=== PATIENT | female | born 1975 | race Caucasian/White ===

== ENCOUNTER 2018-02-04 09:23 | Day surgery (SDC) | payer BC ==
[2018-02-04] MEDS ORDERED: Ondansetron INJ* 2 MG/ML VIAL IV ONE ×2 (10:10→12:15)
[2018-02-04] MEDS ORDERED: Morphine INJ* 4 MG/ML 1 ML CARPUJECT IV ONE ×3 (10:12→14:28)
[2018-02-04] MEDS ORDERED: NS 0.9% 1000 ML* 1,000 ML IV ONE ×2 (10:12→14:16)
[2018-02-04] MEDS ORDERED: Morphine INJ* 2 MG/ML 1 ML CARPUJECT ONE ×2 (10:29→14:32)
[2018-02-04 10:38] LABS: ABS Basophils 0 10^3/ul (0-0.2); ABS Eosinophils 0.2 10^3/ul (0-0.6); ABS Lymphocytes 1.4 10^3/ul (1.0-4.8); ABS Monocytes 0.6 10^3/ul (0-0.8); ABS Neutrophils 7.2 10^3/ul (1.5-7.7); ABS Nucleated RBC 0 10^3/ul; Eosinophil % 1.8 % (0-6); Hematocrit 42 % (35-47); Hemoglobin 14.2 g/dl (12.0-16.0); Lymphocyte % 14.9 % (25-47); Mean Corpuscular HGB Conc 34 g/dl (31-36); Mean Corpuscular Hemoglobin 33 pg (27-31); Mean Corpuscular Volume 96 fL (80-97); Mean Platelet Volume 8 um3 (7.4-10.4); Nucleated Red Blood Cells % 0; Platelet Count 197 10^3/ul (150-450); Red Blood Count 4.36 10^6/ul (4.0-5.4); Red Cell Distribution Width 13 % (10.5-15); White Blood Count 9.3 10^3/ul (3.5-10.8)
[2018-02-04 11:04] LABS: EGFR Non-African American 108.6 (>60)
[2018-02-04] MEDS ORDERED: Iohexol 300* (CONTRAST) 10 ML SDV IV ONE (12:00)
--- NOTE | 2018-02-04 12:15 | ED ---
Abdominal Pain/Female - HPI Summary HPI Summary: Patient presents to the ED with chief complaint of right lower quadrant pain 2 days. She states the pain is worsening, worse after eating and associated with nausea. Symptoms are aggravated by standing straight or lying flat. Alleviated only somewhat with slight flexion at the hips. Multiple abdominal surgeries in the past, but still has her appendix and gallbladder. Denies any fevers, sweats, chills. Pain is rated a 9 out of 10, intermittent, throbbing. Associated nausea, but denies any vomiting. History of full hysterectomy, 2 hernia repairs, gastric bypass. Denies pain similar to this in the past. Denies any diarrhea, constipation, hematemesis, melena. Denies any epigastric pain or pain in all 3 quadrants. She called her physician's office and spoke with a nurse who sent her to the ED for rule out appendicitis. She states she has pain in the right lower quadrant when she presses to the left lower quadrant. - History of Current Complaint Chief Complaint: EDAbdPain Stated Complaint: ABD PAIN Time Seen by Provider: 02/04/18 09:53 Hx Obtained From: Patient ?: No Onset/Duration: Sudden Onset Timing: Constant Severity Initially: Moderate Severity Currently: Moderate Pain Intensity: 7 Pain Scale Used: 0-10 Numeric Location: Discrete At: RLQ Radiates: No Character: Sharp, Cramping Aggravating Factor(s): Food, Deep Breaths Alleviating Factor(s): Position Associated Signs and Symptoms: Positive: Decreased Appetite, Nausea. Negative: Diaphoresis, Fever, Cough, Chest Pain, Constipation, Blood in Stool, Urinary Symptoms, Vaginal Bleeding, Vaginal Discharge, Vomiting, Diarrhea - Risk Factors Ectopic Risk Factor: Maternal Age ^ 30 Ovarian Torsion Risk Factor: Reproductive Age, Hysterectomy Allergies/Adverse Reactions: Allergies Allergy/AdvReac Type Severity Reaction Status Date / Time MS Avocado [Avocado] AdvReac Severe Abdominal Verified 02/04/18 14:20 Pain MS Erythromycin AdvReac Severe stomach Verified 02/04/18 14:20 [Erythromycin] pain, spasms in esophogus environmental Allergy Unknown Unknown Uncoded 02/04/18 14:20 Reaction Details PMH/Surg Hx/FS Hx/Imm Hx Previously Healthy: Yes Endocrine/Hematology History: Denies: Hx Diabetes Cardiovascular History: Denies: Hx Congestive Heart Failure, Hx Hypertension Respiratory History: Reports: Hx Seasonal Allergies - enviromental, Hx Sleep Apnea - HX OF PROIR TO GASTRIC BYPASS GI History: Reports: Hx Gastroesophageal Reflux Disease - at times meds otc prn History: Denies: Hx Renal Disease Musculoskeletal History: Reports: Hx Back Problems, Hx Orthopedic Injury - ( right) arm, injury, unable to raise above head, Other Musculoskeletal History - chronic back & neck pain Sensory History: Denies: Hx Contacts or Glasses, Hx Hearing Aid Opthamlomology History: Denies: Hx Contacts or Glasses Psychiatric History: Reports: Hx Anxiety - RECENTLY STARTED MEDICATION FOR - Cancer History Hx Chemotherapy: No Hx Radiation Therapy: No - Surgical History Surgery Procedure, Year, and Place: 2002 [facility]. 2007 c section [facility]. 2013 gastric bypass. 03/13 ventral hernia repair [facility] [place]. HYSTERECTOMY Hx Anesthesia Reactions: Yes - SEVERE NAUSEA//- 10/2015-NO PROBLEM WITH ANESTHESIA WITH THAT SURGERY - Immunization History Hx Pertussis Vaccination: No Immunizations Up to Date: Unable to Obtain/Confirm Infectious Disease History: No Infectious Disease History: Denies: Traveled Outside the [place] in Last 30 Days - Family History Family History: No FHx of Malignant Hyperthermia. No FHx of Breast Cancer. No FHx of Anesthesia Reaction - Social History Occupation: Employed Full-time Lives: With Family Alcohol Use: Occasionally Alcohol Amount: 1-2 DRINKS/MONTH Hx Substance Use: No Substance Use Type: Reports: None Hx Tobacco Use: No Smoking Status (MU): Never Smoked Tobacco Have You Smoked in the Last Year: No Review of Systems - ROS Summary Review of Systems Summary: Constitutional: The patient denies fever, PEREZ, sweats or chills. HEENT: Head: The patient denies headaches or dizziness. Eyes: The patient denies diplopia, blurry vision, eye pain, eye discharge, photophobia. Throat: The patient denies sore throats or hoarseness. Cardiovascular: The patient denies chest pain, palpitations, syncope, night cramps, or orthostasis. Respiratory: The patient denies cough, sputum production, hemoptysis, dyspnea, wheezing. Gastrointestinal: The patient denies odynophagia, dysphagia, hematemesis, melenemesis. Endorses right lower quadrant pain. Endorses nausea. Denies vomiting. Denies constipation or diarrhea. Genitourinary: Patient denies dysuria, hematuria, or pyuria. Patient denies back pain. Denies vaginal discharge, vaginal bleeding. Denies other urinary symptoms. Muscles: The patient denies myalgia, strain or weakness. Joints: The patient denies arthralgia and/or arthritis. Neurologic: The patient denies headache, loss of consciousness, or seizure. Constitutional: Negative Negative: Fever, Chills, Fatigue, Skin Diaphoresis Eyes: Negative Cardiovascular: Negative Respiratory: Negative Positive: Abdominal Pain, Nausea. Negative: Vomiting, Diarrhea Genitourinary: Negative Positive: no symptoms reported, see HPI. Negative: dysuria, frequency, flank pain Musculoskeletal: Negative Skin: Negative All Other Systems Reviewed And Are Negative: Yes Physical Exam - Summary Physical Exam Summary: Appearance: WDW, comfortable, pleasant, alert Skin: Soft dry skin, no lesions. Nailbeds pink with no cyanosis or clubbing. No petechia noted. Eyes: KAMAR, EOMI, Conjunctiva pink with no redness or exudates. Mouth: Dentition without lesions. Moist mucosa Neck: Full range of motion. Palpable thyroid. Trachea at midline. No lymphadenopathy. Pulm: Chest symmetrical expansion. No deformities on posterior chest wall. Lungs clear to auscultation and percussion, without adventitious sounds. CV: No JVD. No deformities on anterior chest wall. Heart sounds. RRR. Normal S1 and single S2. No S3, S4, rubs, or murmurs. Carotids 2+ bilaterally without bruits. . exam not performed GI: Decreased bowel sounds in all 4 quadrants. Pain to light palpation to the right lower quadrant. No pain on deep palpation of all other 3 quadrants. Negative craig's. Positive obturator, psoas not performed. Pain over McBurney 's point. Rovsing sign positive. Musculoskeletal: Flexion and extension of neck without limitations. ROM WNL in all extremities. No deformities noted. Pulses +2 bilaterally. Neuro: Motor strength is 5/5 in upper and lower extremities bilaterally. A&OX3 Psych: Logical, coherent Triage Information Reviewed: Yes Vital Signs On Initial Exam: Initial Vitals Temp Pulse Resp BP Pulse Ox 98.3 F 71 18 127/78 98 02/04/18 09:24 02/04/18 09:24 02/04/18 09:24 02/04/18 09:24 02/04/18 09:24 Vital Signs Reviewed: Yes Appearance: Positive: Ill-Appearing Skin: Positive: Warm, Skin Color Reflects Adequate Perfusion, Diaphoretic Head/Face: Positive: Normal Head/Face Inspection Eyes: Positive: EOMI, KAMAR, Conjunctiva Clear Neck: Positive: Supple, Nontender, No Lymphadenopathy Respiratory/Lung Sounds: Positive: Clear to Auscultation, Breath Sounds Present Cardiovascular: Positive: Normal, RRR, Pulses are Symmetrical in both Upper and Lower Extremities Abdomen Description: Positive: Soft, Guarding, McBurney's Point Tenderness. Negative: CVA Tenderness (R), CVA Tenderness (L) Musculoskeletal: Positive: Normal, Strength/ROM Intact Neurological: Positive: Speech Normal Psychiatric: Positive: Normal, Affect/Mood Appropriate AVPU Assessment: Alert Diagnostics - Vital Signs Vital Signs Temp Pulse Resp BP Pulse Ox 02/04/18 10:38 68 114/63 97 02/04/18 10:34 20 02/04/18 10:00 120/71 02/04/18 09:50 69 98 02/04/18 09:48 122/70 02/04/18 09:24 98.3 F 71 18 127/78 98 - Laboratory Lab Results: Lab Results 02/04/18 02/04/18 02/04/18 Range/Units 10:20 10:20 10:20 WBC 9.3 (3.5-10.8) 10^3/ul RBC 4.36 (4.0-5.4) 10^6/ul Hgb 14.2 (12.0-16.0) g/dl Hct 42 (35-47) % MCV 96 (80-97) fL MCH 33 H (27-31) pg MCHC 34 (31-36) g/dl RDW 13 (10.5-15) % Plt Count 197 (150-450) 10^3/ul MPV 8 (7.4-10.4) um3 Neut % (Auto) 76.9 (38-83) % Lymph % (Auto) 14.9 L (25-47) % [place] % (Auto) 6.1 (0-7) % Eos % (Auto) 1.8 (0-6) % Baso % (Auto) 0.3 (0-2) % Absolute Neuts (auto) 7.2 (1.5-7.7) 10^3/ul Absolute Lymphs (auto) 1.4 (1.0-4.8) 10^3/ul Absolute Monos (auto) 0.6 (0-0.8) 10^3/ul Absolute Eos (auto) 0.2 (0-0.6) 10^3/ul Absolute Basos (auto) 0 (0-0.2) 10^3/ul Absolute Nucleated RBC 0 10^3/ul Nucleated RBC % 0 Sodium 138 (133-145) mmol/L Potassium 3.7 (3.5-5.0) mmol/L Chloride 105 (101-111) mmol/L Carbon Dioxide 26 (22-32) mmol/L Anion Gap 7 (2-11) mmol/L BUN 9 (6-24) mg/dL Creatinine 0.60 (0.51-0.95) mg/dL Est GFR ( Amer) 139.7 (>60) Est GFR (Non-Af Amer) 108.6 (>60) BUN/Creatinine Ratio 15.0 (8-20) Glucose 89 (70-100) mg/dL Lactic Acid 1.0 (0.5-2.0) mmol/L Calcium 9.3 (8.6-10.3) mg/dL Magnesium 2.0 (1.9-2.7) mg/dL Total Bilirubin 0.50 (0.2-1.0) mg/dL AST 20 (13-39) U/L ALT 27 (7-52) U/L Alkaline Phosphatase 60 (34-104) U/L C-Reactive Protein 54.13 H (< 5.00) mg/L Total Protein 6.7 (6.4-8.9) g/dL Albumin 4.0 (3.2-5.2) g/dL Globulin 2.7 (2-4) g/dL Albumin/Globulin Ratio 1.5 (1-3) Lipase 11 (11.0-82.0) U/L Result Diagrams: 02/04/18 10:20 02/04/18 10:20 Lab Statement: Any lab studies that have been ordered have been reviewed, and results considered in the medical decision making process. Re-Evaluation - Re-Evaluation First Eval Change: Worse - Worse since arrival, patient is given Zofran and morphine Second Eval Change: Improved - Improved immediately S/P morphine, however 2 hours later began to feel pain again Third Eval Change: Improved - She is improved after second dose of morphine Abdominal Pain Fem Course/Dx - Course Course Of Treatment: During the course of treatment, the patient is evaluated for right lower quadrant pain. History of hysterectomy, gastric bypass surgery and 2 hernia repairs. Labs obtained which are within normal limits except for a slightly elevated CRP of 54. Vital signs are stable and she remained afebrile. On arrival she is given Zofran 4 mg IV and morphine 4 mg IV with moderate amount of relief. CT abdomen/pelvis ordered to rule out appendicitis, however she has not had a total hysterectomy and still her ovaries remain. For this reason I am concerned with an ovarian torsion as ovarian torsion risks rise with a hysterectomy. Transvaginal ultrasound ordered. She is given more morphine and Zofran as she continues to have right lower quadrant pain. CT abdomen/pelvis shows acute appendicitis. Dr. Schmidt in surgery called who agrees to come see patient and take to surgery. Zosyn and IV fluids running. - Diagnoses Provider Diagnoses: Acute appendicitis Discharge - Discharge Plan Condition: Stable Disposition: ADMITTED TO [facility] Referrals: Nelda Cary MD [Primary Care Provider] -
--- NOTE | 2018-02-04 13:23 | RAD ---
HISTORY: Right lower quadrant pain, ovarian torsion, status post hysterectomy COMPARISONS: January 19, 2011 TECHNIQUE: Multiple transverse and longitudinal ultrasound images were obtained of the pelvis using grayscale, color Doppler, and spectral Doppler imaging using the endovaginal transducer. FINDINGS: UTERUS: The patient is status post hysterectomy. ENDOMETRIUM: The patient is status post hysterectomy. CUL-DE-SAC: There is small amount of simple fluid within the pelvis. RIGHT OVARY: The right ovary measures 3.9 x 2.5 x 1.5 cm. Normal arterial and venous waveforms are identifiable within the ovary on spectral Doppler imaging. Multiple follicles are noted. LEFT OVARY: The left ovary measures 3.3 x 3.1 x 1.9 cm. Normal arterial and venous waveforms are identifiable within the ovary on spectral Doppler imaging. Multiple follicles are noted. BLADDER: The bladder is not well visualized. OTHER: None IMPRESSION: 1. STATUS POST HYSTERECTOMY. 2. SMALL AMOUNT OF SIMPLE PELVIC ASCITES. 3. NO SONOGRAPHIC FEATURES OF TORSION. PLEASE NOTE THAT PARTIAL OR INTERMITTENT TORSION MAY BE SONOGRAPHICALLY NORMAL.
[2018-02-04 13:51] LABS: Urine Appearance Clear; Urine Blood Negative (Negative); Urine Color Straw; Urine Ketones Negative (Negative); Urine Protein Negative (Negative); Urine Specific Gravity 1.004 (1.010-1.030); Urine Urobilinogen Negative (Negative)
--- NOTE | 2018-02-04 14:05 | RAD ---
INDICATION: Right lower quadrant pain with nausea. COMPARISON: Comparison is made with a prior CT of the abdomen and pelvis from August 21, 2016. TECHNIQUE: A CT scan of the abdomen and pelvis was performed with intravenous and oral contrast following intravenous injection of 115 ml of Omnipaque 300 nonionic contrast. Contiguous axial sections were obtained from the lung bases through the symphysis pubis. Images were reconstructed in the coronal and sagittal planes. FINDINGS: There is mild dependent bilateral lower lobe subsegmental atelectasis. No pleural effusion is present. The liver is mildly enlarged and decreased in attenuation consistent with fatty infiltration. No significant focal abnormality is seen. The spleen is normal in size. The gallbladder appears distended. No gallbladder thickening or calcified gallstones are seen. The pancreas appears to be within normal limits. There is a small 0.8 cm left adrenal nodule which is unchanged from the prior study. The adrenal glands are otherwise unremarkable. The kidneys are normal in size. No focal abnormality or hydronephrosis is seen. The aorta is normal in caliber and demonstrates homogeneous contrast opacification. No significant enlarged retroperitoneal lymph nodes are seen. The patient appears to be status post Toño-en-Y gastric bypass surgery. The excluded stomach is nondistended. The small bowel and colon appear nondistended. The appendix appears distended with increased contrast enhancement. The appendix measures up to 1.2 cm in transverse dimension. There is stranding in the adjacent mesenteric fat. There is also a calcification in the base of the. These findings are all suggestive of acute appendicitis. There are few scattered diverticuli within the colon. There is no evidence for diverticulitis. There is a periumbilical hernia containing fat. No free intraperitoneal air is seen. There is free intraperitoneal fluid present in the dependent portion of the pelvis. No abscess is seen. No significant focal osseous abnormality is seen. IMPRESSION: FINDINGS MOST CONSISTENT WITH ACUTE APPENDICITIS.
[2018-02-04] MEDS ORDERED: Piperacillin/Tazobac ADVAN(*) 3.375 GM in NS 0.9% 100 ML* 100 ML IVPB ONE (14:16)
[2018-02-04] MEDS ORDERED: Bupivacaine 0.25% SDV* 30 ML ONE (14:46)
[2018-02-04] MEDS ORDERED: Scopolamine 1.5 mg* PATCH ONE (15:12)
--- NOTE | 2018-02-04 15:15 | HP ---
H&P (Free Text) History and Physical: Done in error. Please refer to dictated H&P.
[2018-02-04] MEDS ORDERED: fentaNYL* 50 MCG/ML 2 ML VIAL (100 MCG VIAL) ONE (15:16)
[2018-02-04] MEDS ORDERED: Rocuronium* 10 MG/ML VIAL ONE (15:16)
[2018-02-04] MEDS ORDERED: Midazolam* 1 MG/ML 5 ML VIAL (5 MG) ONE (15:16)
--- NOTE | 2018-02-04 15:20 | HP ---
H&P (Free Text) History and Physical: Patient known to me from prior surgery. She has presented to ED with 1 day h/o abd pain localized to RLQ, nausea, anorexia, and CT scan shows findings c/w acute appendicitis. I agree with the H&P, assessment and plan as per PURVI Gonzalez. Lap appy procedure/I/R/B/A/option of no tx d/w pt/. Risks explained incl, not ltd to: bleed, infxn, pain, scars, blood clots, PNA, N/V, open procedure, and risks of GETA. All ? answered and she agrees to proceed.
[2018-02-04] MEDS ORDERED: Ketorolac INJ* 30 MG/ML 1 ML VIAL ONE (15:22)
[2018-02-04] MEDS ORDERED: Succinylcholine* 20 MG/ML 10 ML VIAL ONE (15:22)
[2018-02-04] MEDS ORDERED: Lidocaine 2% PF * 5 ML VIAL ONE (15:22)
[2018-02-04] MEDS ORDERED: Dexamethasone IV* 4 MG/ML 1 ML (4 MG) ONE (15:22)
[2018-02-04] MEDS ORDERED: Propofol* 10 MG/ML 20 ML BTL IV PUSH ONE (15:22)
[2018-02-04] MEDS ORDERED: DiMENhydriNATE IV* 50 MG/ML VIAL ONE (15:22)
[2018-02-04] MEDS ORDERED: Ondansetron INJ* 2 MG/ML VIAL ONE (15:22)
--- NOTE | 2018-02-04 15:24 | HP ---
DATE OF ADMISSION: 02/04/2018. ATTENDING SURGEON: Dr. Ced Costa* (dictated by PURVI Curiel). REASON FOR ADMISSION: Right lower quadrant abdominal pain. HISTORY OF PRESENT ILLNESS: Ms. Patel is a pleasant, 42-year-old female who presented to the emergency room earlier today with complaints of 24 hours of abdominal pain. She notes that her pain started roughly around 5 o'clock yesterday evening with no precipitating factors. She described it as a dull, aching pain localized to the right lower quadrant with sharp episodes rated at up to 10/10 in intensity. She reports associated nausea, but denies any vomiting or changes in bowel habits. She has never had any similar pains in the past. She denies any associated fever, chills or night sweats. She noticed some decreased appetite overnight and this morning as well with worsening abdominal pain for which she presented to the emergency room for further evaluation. She had laboratory work-up that revealed a normal white count, normal hemoglobin and hematocrit. Her chemistry panel was also normal with the exception of elevated C-reactive protein. She was noted to have significant tenderness on exam to the right lower quadrant of her abdomen for which a CT scan and a transvaginal ultrasound were ordered; CT suggesting finds of acute appendicitis. Given her clinical picture and the findings of the CT scan, we were asked to see the patient for further evaluation of possible appendicitis. PAST MEDICAL HISTORY: Significant for morbid obesity, she is status post laparoscopic Toño-en-Y gastric bypass back in 2013. Also, she has a history of an anxiety disorder and gastroesophageal reflux disease. PAST SURGICAL HISTORY: Significant for laparoscopic Toño-en-Y gastric bypass back in 2013. She also had three laparoscopic ventral hernia repairs on separate occasions as well as recent hysterectomy back in September of 2016. CURRENT MEDICATIONS: Her medications at home include: 1. Biotin 1,000 mcg p.o. daily. 2. Calcium Citrate four wafers daily. 3. Vitamin D tablets 2,000 units p.o. daily. 4. Lexapro 5 mg p.o. daily. 5. Ativan 0.5 mg p.o. q.6 hours as needed for anxiety. 6. Multivitamin chewable two tablets daily. ALLERGIES: She is ALLERGIC TO ERYTHROMYCIN. FAMILY HISTORY: Noncontributory. SOCIAL HISTORY: The patient has never smoked. She is , lives with her family, and she drinks alcohol rarely. REVIEW OF SYSTEMS: See HPI, other negative. She denies any headache, dizziness , blurred vision, or double vision. No chest pain, palpitations, cough or shortness of breath. No back pain, flank pain, hematuria, dysuria, or urinary frequency. She admits to right lower quadrant abdominal pain with associated nausea, but denies any vomiting, recent changes in bowel habits, melena, or bleeding per rectum. No fever, chills, weight loss, or night sweats. PHYSICAL EXAMINATION GENERAL: She is a pleasant, healthy-appearing, middle-aged female in no acute distress or discomfort at the time of admission. VITAL SIGNS: Temperature 98.3, pulse 80, blood pressure 105/47, respirations 16 , O2 sat 99 percent on room air. HEENT: Head is normocephalic, atraumatic. Sclerae anicteric. PERRLA. EOM's intact. Oropharynx pink and moist with no exudate. NECK: Supple, trachea midline. No cervical adenopathy or thyromegaly. LUNGS: Clear to auscultation bilaterally. HEART: Regular rate and rhythm. Normal S1 and S2 without rubs, murmurs, or gallops. BACK: Normal curvature, no CVA tenderness. BREASTS: Exam deferred at this time. ABDOMEN: Soft and nondistended. There is moderate right lower quadrant tenderness with localized tenderness noted at McBurney's point. There is some guarding and rebound tenderness noted, but no rigidity or tympany. There are no hernias, masses, or hepatosplenomegaly. Bhatt sign was negative. EXTREMITIES: Without cyanosis, clubbing, or edema. RECTAL: Exam deferred at this time. NEUROLOGIC: Grossly intact. LABORATORY DATA: Laboratory work-up as mentioned above. CBC showed normal white count of 9,000; normal hemoglobin and hematocrit of 14 and 42 respectively. Her chemistry panel was all essentially within normal limits, including LFT's with elevated C-reactive protein of 54. Her urinalysis was also normal. ACCESSORY DIAGNOSTIC DATA: CT scan of the abdomen and pelvis was consistent with acute appendicitis. Transvaginal ultrasound showed no evidence of ovarian torsion. ASSESSMENT: [id number]-old female with signs and symptoms, as well as imaging studies consistent with acute appendicitis. PLAN: The patient will be admitted under the Surgical services for observation. I will discuss the case with Dr. Costa and we will likely take her to the operating room later this afternoon or early evening in anticipation for laparoscopic appendectomy. The rationale, indications, risks, and benefits of surgery were discussed with her today. Risks include, but not limited to infection, bleeding, or injury to adjacent structures. She seems to understand and wishes to proceed as outlined. PURVI CURIEL [id number]/[facility] #: [id number] MTDKeegan
[2018-02-04] MEDS ORDERED: Naloxone* 0.4 MG/ML 1 ML VIAL IV PRN (16:07)
[2018-02-04] MEDS ORDERED: Acetaminophen IV 1GM/100ML * 1,000 MG/100 ML VIAL IVPB ONE (16:07)
[2018-02-04] MEDS ORDERED: DiMENhydriNATE IV* 50 MG/ML VIAL IV PUSH PRN (16:07)
[2018-02-04] MEDS ORDERED: oxyCODONE TAB* 5 MG TAB PO PRN (16:07)
[2018-02-04] MEDS ORDERED: HYDROmorphone INJ* 1 MG/ML CARPUJECT SYRINGE ONE (16:14)
[2018-02-04] MEDS ORDERED: Acetaminophen IV 1GM/100ML * 100 ML ONE (16:40)
[2018-02-04] MEDS ORDERED: HYDROmorphone INJ* 2 MG/ML CARPUJECT SYRINGE ONE (16:40)
[2018-02-04] MEDS: HYDROmorphone INJ* 1 MG/ML CARPUJECT SYRINGE IV PRN ×2 (16:50→17:08)
[2018-02-04 19:24] VITALS: BP 110/68
--- NOTE | 2018-02-04 21:50 | OP ---
DATE OF OPERATION: 02/04/18 - [facility] DATE OF : 71 SURGEON: Ced Costa MD GRINDING ROOM INSPECTOR: None. ANESTHESIOLOGIST: Miranda Augustin MD ANESTHESIA: General endotracheal. PRE-OP DIAGNOSIS: Acute appendicitis. POST-OP DIAGNOSIS: Acute appendicitis. OPERATIVE PROCEDURE: Laparoscopic appendectomy. ESTIMATED BLOOD LOSS: Minimal. IV FLUIDS: Crystalloid. SPECIMENS: Appendix. DRAINS: None. COMPLICATIONS: None. COUNTS: Instrument, needle, and sponge counts correct. DESCRIPTION OF PROCEDURE: The patient was brought to the operating room and placed on the table supine. Sequential compression devices were placed on both lower extremities. General anesthesia was administered. The abdomen was prepped and draped in the usual sterile fashion. Time-out was performed. Local anesthetic was infiltrated into the skin and soft tissue prior to making each incision. Entry to the abdomen was through a infraumbilical curvilinear incision created through a previous scar. Open technique was used to access the peritoneal cavity. Carbon dioxide was insufflated to a pressure of 15 mmHg. Under direct visualization, two 5-mm trocars were placed one in the suprapubic, midline and one in the left lower quadrant. The appendix was identified in the right lower quadrant. It appeared to be inflamed along the distal one half. No gangrene. No suppuration noted. The appendix was elevated and wound appeared in the mesentery of the appendix and the mesentery then was divided with the EndoGIA stapler with a robert cartridge. The appendix was divided at the cecum with the EndoGIA stapler with a thakur cartridge. The appendix was placed through an endoscopic retrieval bag and retrieved through the umbilical site. Hemostasis was assured. The infraumbilical incision wound was closed with 0 Polysorb to approximate the fascia in one layer. The ports were removed under direct visualization and carbon dioxide was released. Skin incisions were closed with 4-0 Monocryl in a subcuticular fashion. Steri- Strips were applied. The patient tolerated this procedure well. She was extubated and transferred to Recovery in stable condition. [id number]/[facility] #: [id number] [facility]
== END 2018-02-04 19:25 | disposition home or self-care (01) ==
LOC: ED 09:23 → OR 15:13
PROVIDERS: ATTEND Surgery
DX: K35.80 Unspecified acute appendicitis (principal); R10.31 Right lower quadrant pain; R11.0 Nausea; K21.9 Gastro-esophageal reflux disease without esophagitis; Z98.84 Bariatric surgery status; F41.9 Anxiety disorder, unspecified
CPT/HCPCS: 36415; 74177; 76830; 80053; 81003; 83605; 83690; 83735; 85025; 86140; 87040; 88304; 99284; A9270-GY; C1776; J0330; J1100; J1170; J1240; J1885; J2250; J2270; J2405; J2543; J2704; J3010; Q9967

== ENCOUNTER 2018-06-30 17:25 | Emergency (ER) | payer BC ==
[2018-06-30 17:33] VITALS: BP 118/70
--- NOTE | 2018-06-30 17:44 | UC ---
Lower Extremity/Ankle HPI - HPI Summary HPI Summary: [facility] for attending Loco Deras MD. Pt is a 42 y/o F c/o bilateral LE swelling Assoc. Sx: Denies: Described as PMHx: - History of Current Complaint Chief Complaint: UCLowerExtremity Stated Complaint: FOOT COMPLAINT Time Seen by Provider: 06/30/18 17:38 Hx Obtained From: Patient Severity Currently: Severe Pain Intensity: 8 Pain Scale Used: 0-10 Numeric - Allergies/Home Medications Allergies/Adverse Reactions: Allergies Allergy/AdvReac Type Severity Reaction Status Date / Time avocado Allergy Unknown Verified 06/30/18 17:33 Reaction Details erythromycin base Allergy Unknown Verified 06/30/18 17:33 Reaction Details environmental Allergy Unknown Unknown Uncoded 02/16/18 10:45 Reaction Details Home Medications: Home Medications Biotin 06/30/18 [History] Calcium Carbonate [Calcium] 06/30/18 [History] PMH/Surg Hx/FS Hx/Imm Hx - Surgical History Surgical History: Yes Surgery Procedure, Year, and Place: 2002 [facility]. 2007 [facility] section [facility]. 2013 gastric bypass. 03/13 ventral hernia repair [facility]. HYSTERECTOMY. APPENDECTOMY ON 02/04/18 NEED TO WAIT [address] VELASCO - Family History Family History: No FHx of Malignant Hyperthermia. No FHx of Breast Cancer. No FHx of Anesthesia Reaction - Social History Alcohol Use: Occasionally Alcohol Amount: 1-2 DRINKS/MONTH Substance Use Type: None Smoking Status (MU): Never Smoked Tobacco Have You Smoked in the Last Year: No - Immunization History Most Recent Influenza Vaccination: 08/2014 Most Recent Tetanus Shot: UNKNOWN Most Recent Pneumonia Vaccination: NEVER Physical Exam Vital Signs: Initial Vital Signs Temp 98.6 F 06/30/18 17:26 Pulse 62 06/30/18 17:26 Resp 16 06/30/18 17:26 BP 118/70 06/30/18 17:26 Pulse Ox 100 06/30/18 17:26 Discharge - Discharge Plan Referrals: Nelda Cary MD [Primary Care Provider] -
--- NOTE | 2018-06-30 17:56 | ED ---
Lower Extremity - HPI Summary HPI Summary: 42 yr old female with the complaint of left ankle foot pain. Onset of symptoms a couple of weeks ago and at first in the medial arch of the foot, and then in the medial ankle. She has pain that has gotten worse, and with standing and walking all day has become worse today. She notes some minor swelling medial left ankle. She recalls no trauma, falls or injuries. SHe has not had fever, chills or been ill. No travel or long trips. She states she pain shoots up into the lower left medial leg area. She does not feel her left leg is any more swollen above the medial ankle. She has not had SOB, or pain in chest. - History of Current Complaint Chief Complaint: UCLowerExtremity Stated Complaint: FOOT COMPLAINT Time Seen by Provider: 06/30/18 17:38 Pain Intensity: 8 - Allergies/Home Medications Allergies/Adverse Reactions: Allergies Allergy/AdvReac Type Severity Reaction Status Date / Time avocado Allergy Unknown Verified 06/30/18 17:33 Reaction Details erythromycin base Allergy Unknown Verified 06/30/18 17:33 Reaction Details environmental Allergy Unknown Unknown Uncoded 02/16/18 10:45 Reaction Details Home Medications: Home Medications Biotin 06/30/18 [History] Calcium Carbonate [Calcium] 06/30/18 [History] PMH/Surg Hx/FS Hx/Imm Hx Endocrine/Hematology History: Denies: Hx Diabetes Cardiovascular History: Denies: Hx Congestive Heart Failure, Hx Hypertension, Hx Pacemaker/ICD Respiratory History: Reports: Hx Seasonal Allergies - enviromental, Hx Sleep Apnea - HX OF PROIR TO GASTRIC BYPASS GI History: Reports: Hx Gastroesophageal Reflux Disease - at times meds otc prn History: Denies: Hx Renal Disease Musculoskeletal History: Reports: Hx Back Problems, Hx Orthopedic Injury - ( right) arm, injury, unable to raise above head, Other Musculoskeletal History - chronic back & neck pain Sensory History: Denies: Hx Contacts or Glasses, Hx Hearing Aid Opthamlomology History: Denies: Hx Contacts or Glasses Psychiatric History: Reports: Hx Anxiety - RECENTLY STARTED MEDICATION FOR Denies: Hx Panic Disorder - Cancer History Hx Chemotherapy: No Hx Radiation Therapy: No - Surgical History Surgery Procedure, Year, and Place: [facility]. 2007 [facility]. 2013 gastric bypass. 03/13 ventral hernia repair [facility]. HYSTERECTOMY. APPENDECTOMY ON 02/04/18 NEED TO WAIT [address] KRISTA Arce Anesthesia Reactions: Yes - SEVERE NAUSEA//- 10/2015-NO PROBLEM WITH ANESTHESIA WITH THAT SURGERY Infectious Disease History: No Infectious Disease History: Denies: Traveled Outside the [place] in Last 30 Days - Family History Known Family History: Positive: Diabetes, Other - DM, No hisotry of blood clots Family History: No FHx of Malignant Hyperthermia. No FHx of Breast Cancer. No FHx of Anesthesia Reaction - Social History Occupation: Employed Full-time Lives: With Family Alcohol Use: Occasionally Alcohol Amount: 1-2 DRINKS/MONTH Hx Substance Use: No Substance Use Type: Reports: None Hx Tobacco Use: No Smoking Status (MU): Never Smoked Tobacco Have You Smoked in the Last Year: No Review of Systems Constitutional: Negative Positive: Other - left ankle foot pain All Other Systems Reviewed And Are Negative: Yes Physical Exam Triage Information Reviewed: Yes Vital Signs On Initial Exam: Initial Vitals Temp Pulse Resp BP Pulse Ox 98.6 F 62 16 118/70 100 06/30/18 17:26 06/30/18 17:26 06/30/18 17:26 06/30/18 17:26 06/30/18 17:26 Vital Signs Reviewed: Yes Appearance: Positive: Well-Appearing, No Pain Distress Skin: Positive: Warm, Skin Color Reflects Adequate Perfusion Head/Face: Positive: Normal Head/Face Inspection ENT: Positive: Pharynx normal Neck: Positive: Nontender Respiratory/Lung Sounds: Positive: Clear to Auscultation, Breath Sounds Present Cardiovascular: Positive: RRR, Pulses are Symmetrical in both Upper and Lower Extremities. Negative: Murmur Abdomen Description: Negative: Distended Musculoskeletal: Positive: Strength/ROM Intact, Other - there is mild tenderness over the medial plantar arch and over the anterior medial malleolus left ankle with mild STS. There are some slight spider veins present over the medial malleolus that are tender. No tenderness over the lateral malleolus. No tenderness over base of 5th metatarsal. She has no erythema or cellulitis to the foot or ankle area. The feet are symmetric in color, tactile temperture , and in size. No bruises noted. No rash. The calf and thigh areas are free of edema and free of tenderness. No erythema or cellulits to either leg, ankle or foot. She has some superficial spider type veins on thighs. There is no ankle joint effusion. Neurological: Positive: Sensory/Motor Intact, Alert, Oriented to Person Place, Time, CN Intact II-III, Normal Gait, Speech Normal Diagnostics - Vital Signs Vital Signs Temp Pulse Resp BP Pulse Ox 06/30/18 17:26 98.6 F 62 16 118/70 100 - Laboratory Lab Statement: Any lab studies that have been ordered have been reviewed, and results considered in the medical decision making process. - Radiology left foot and ankle Xray Interpretation: No Acute Changes Radiology Interpretation Completed By: Radiologist Lower Extremity Course/Dx - Course Course Of Treatment: 42 yr old with negative xrays. She has more prominent veins medial ankle than usual and she does report the pain traces up along her saphenous vein area up the leg. It would be useful to get Venous Doppler to evaluate this, and to be absolutely certain no DVT. She is being referred to the ER at [facility] [place] for futher evaluation now. She does not want an ambulance, and she feels totally capable of driving herself there now. - Diagnoses Provider Diagnoses: Ankle pain, left, Painful veins Discharge - Sign-Out/Discharge Documenting (check all that apply): Patient Departure - Discharge Plan Condition: Good Disposition: HOME-RECOMMEND TO ED Patient Education Materials: Arthralgia (ED), Superficial Thrombophlebitis (ED) Referrals: Nelda Cary MD [Primary Care Provider] - - Billing Disposition and Condition Condition: GOOD Disposition: Home-Recommend to ED
--- NOTE | 2018-06-30 18:03 | RAD ---
Indication: Left ankle pain. 3 views of left ankle demonstrates no fracture. Ankle mortise is intact. No other bone or joint abnormality is identified. IMPRESSION: Ankle mortise is intact. No fracture is identified.
--- NOTE | 2018-06-30 18:06 | RAD ---
Indication: Left foot pain. 3 views of left foot demonstrates no fracture. No other bone or joint abnormality is identified. IMPRESSION: No fracture of the left foot is noted.
== END 2018-06-30 18:25 | disposition home health service (06) ==
LOC: UCEAST 17:25
DX: M25.572 Pain in left ankle and joints of left foot (principal); I83.813 Varicose veins of bilateral lower extremities with pain; F41.9 Anxiety disorder, unspecified; Z88.1 Allergy status to other antibiotic agents; Z91.018 Allergy to other foods
CPT/HCPCS: 99212; G0463

== ENCOUNTER 2018-06-30 18:48 | Emergency (ER) | payer BC ==
--- NOTE | 2018-06-30 19:56 | ED ---
Lower Extremity - HPI Summary HPI Summary: [facility] presents from [facility] to rule out left lower extremity DVT. She reports she's had gradual progression of left foot and ankle swelling with pain that is now starting to shoot up into her calf when she bears weight. She denies any trauma acutely however admits to a history of multiple sprained ankles bilaterally and is on her feet many hours throughout the day at work. She also admits to some weight gain however she reports this took place a while ago. Other than a small fracture to the lateral aspect of her foot as a child with no residual issues, she denies any other surgeries or trauma to her lower extremities. She does admit her pain is sometimes worse in the morning. She admits to history of plantar fasciitis however doesn't think this feels quite the same. Denies numbness, tingling, weakness. She does have some bruising and spider veins starting along the instep of her left foot and ankle area. Otherwise no erythema, streaking, etc. She had an x-ray done a [facility] which is without acute fracture dislocation. She denies chest pain, shortness of breath, back pain, bloody cough, increased heart rate, fever. She also denies recent travel, trauma, history of smoking, history of cancer, history of clotting disorders. She has undergone bariatric surgery and is not allowed to take NSAID's so she has not been taking any medication for her current symptoms. NOTE: He's continuous follow-up with her bariatric team and reports her nutrition levels have been within range. She denies a history of osteoporosis or osteopenia however this does run in her family. - History of Current Complaint Chief Complaint: EDExtremityLower Stated Complaint: LT ANKLE PAIN Time Seen by Provider: 06/30/18 19:11 Hx Obtained From: Patient, Family/Gas Fitter Helper - Daughter Pain Intensity: 4 - Allergies/Home Medications Allergies/Adverse Reactions: Allergies Allergy/AdvReac Type Severity Reaction Status Date / Time avocado Allergy Unknown Verified 06/30/18 17:33 Reaction Details erythromycin base Allergy Unknown Verified 06/30/18 17:33 Reaction Details environmental Allergy Unknown Unknown Uncoded 02/16/18 10:45 Reaction Details PMH/Surg Hx/FS Hx/Imm Hx Previously Healthy: Yes Endocrine/Hematology History: Denies: Hx Anticoagulant Therapy, Hx Blood Disorders, Hx Diabetes, Hx Anemia , Hx Unexplained Bleeding Cardiovascular History: Denies: Hx Congestive Heart Failure, Hx Hypertension, Hx Pacemaker/ICD Respiratory History: Reports: Hx Seasonal Allergies - enviromental, Hx Sleep Apnea - HX OF PROIR TO GASTRIC BYPASS GI History: Reports: Hx Gastroesophageal Reflux Disease - at times meds otc prn History: Denies: Hx Renal Disease Musculoskeletal History: Reports: Hx Back Problems, Hx Orthopedic Injury - ( right) arm, injury, unable to raise above head, Other Musculoskeletal History - chronic back & neck pain Sensory History: Denies: Hx Contacts or Glasses, Hx Hearing Aid Opthamlomology History: Denies: Hx Contacts or Glasses Psychiatric History: Reports: Hx Anxiety - RECENTLY STARTED MEDICATION FOR Denies: Hx Panic Disorder - Cancer History Hx Chemotherapy: No Hx Radiation Therapy: No - Surgical History Surgery Procedure, Year, and Place: 2002 [facility]. 2007 [facility]. 2013 gastric bypass. 03/13 ventral hernia repair [facility]. HYSTERECTOMY. APPENDECTOMY ON 02/04/18 NEED TO WAIT [address] KRISTA Arce Anesthesia Reactions: Yes - SEVERE NAUSEA//- 10/2015-NO PROBLEM WITH ANESTHESIA WITH THAT SURGERY Infectious Disease History: No Infectious Disease History: Denies: Traveled Outside the [place] in Last 30 Days - Family History Known Family History: Positive: Diabetes, Other - DM, No history of blood clots Family History: No FHx of Malignant Hyperthermia. No FHx of Breast Cancer. 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 Negative: Decreased ROM Positive: Bruising Neurological: Negative Psychological: Normal All Other Systems Reviewed And Are Negative: Yes Physical Exam Triage Information Reviewed: Yes Vital Signs On Initial Exam: Initial Vitals Temp Pulse Resp BP Pulse Ox 97.7 F 77 16 131/85 100 06/30/18 18:52 06/30/18 18:52 06/30/18 18:52 06/30/18 18:52 06/30/18 18:52 Vital Signs Reviewed: Yes Appearance: Positive: Well-Appearing, No Pain Distress Skin: Positive: Warm, Skin Color Reflects Adequate Perfusion, Dry - superficial spider veins over boggy/edematous tissue along the Lt medial aspect of her ankle /instep - this is mildly TTP; all other anatomy of the foot, ankle and calf are NTTP; she may have a subtle increase in laxity of her Lt ankle joint compared to Rt - no gross deformity or gross instability observed; FROM w/o pain or restriction Head/Face: Positive: Normal Head/Face Inspection Eyes: Positive: EOMI ENT: Positive: Hearing grossly normal Respiratory/Lung Sounds: Positive: Breath Sounds Present Cardiovascular: Positive: Pulses are Symmetrical in both Upper and Lower Extremities. Negative: Leg Edema Left, Leg Edema Right - (-) Catarina's B/L Musculoskeletal: Positive: Strength/ROM Intact - see above for details Neurological: Positive: Normal, Sensory/Motor Intact, Alert, Oriented to Person Place, Time, CN Intact II-III Psychiatric: Positive: Normal Diagnostics - Vital Signs Vital Signs Temp Pulse Resp BP Pulse Ox 06/30/18 18:52 97.7 F 77 16 131/85 100 - Laboratory Lab Statement: Any lab studies that have been ordered have been reviewed, and results considered in the medical decision making process. Lower Extremity Course/Dx - Course Course Of Treatment: U/S: no DVT. Suspect PATRICIA injury - pt will wear boot and f/ u w/ PCP. If same or worse, will seek referal to ortho/lead press operator - Diagnoses Provider Diagnoses: Arthralgia of left foot Discharge - Sign-Out/Discharge Documenting (check all that apply): Patient Departure - Discharge Plan Condition: Stable Disposition: HOME Patient Education Materials: Foot Sprain (ED) Referrals: Nelda Cary MD [Primary Care Provider] - Additional Instructions: Wear boot during weight-bearing times of your day. You may remove this to shower and sleep. This may be worn over the course of the next 1-2 weeks and follow up with your PCP after this time to see if you are improving. If not, you may require further imaging such as an MRI and/or referral to a lead press operator or biomedical specialist. Again, your PCP can help you with this referral. Call tomorrow to schedule a follow-up appointment. In the meantime, rest, ice, elevate and you may apply topical analgesic such as Biofreeze, etc. for relief of pain and swelling. *If he developed numbness, tingling, weakness, change in color of your foot or ankle, return to the emergency department. - Billing Disposition and Condition Condition: STABLE Disposition: Home
[2018-06-30 22:00] VITALS: BP 128/75
--- NOTE | 2018-07-01 06:58 | RAD ---
INDICATION: Left leg pain ankle and foot swelling. COMPARISON: There are no prior studies available for comparison. TECHNIQUE: Multiple real-time, color flow and Doppler tracings of the left lower extremity were obtained. FINDINGS: The common femoral, femoral, profunda femoral and popliteal veins all demonstrate normal compressibility, augmentation with compression and phasic response with respiration. The posterior tibial and peroneal veins demonstrate normal compressibility and augmentation with compression. IMPRESSION: NO EVIDENCE FOR DEEP VENOUS THROMBOSIS.
== END 2018-06-30 21:04 | disposition home or self-care (01) ==
LOC: ED 18:48
DX: M25.572 Pain in left ankle and joints of left foot (principal); R22.42 Localized swelling, mass and lump, left lower limb; F41.9 Anxiety disorder, unspecified; Z79.899 Other long term (current) drug therapy; Z88.3 Allergy status to other anti-infective agents
CPT/HCPCS: 99282

== ENCOUNTER 2018-12-09 09:20 | Emergency (ER) | payer BC, OTHER ==
--- OUTSIDE RECORDS SUMMARY | 2018-12-09 09:28 | XMS REPORT ---
:1975 External Reference #:[id number] Author Organization [facility] Address [address] [place] [address] Phone [phone] Care Team Providers Name Role Phone Nelda Cary Care Team Information Vacation Sales Advisor Unavailable Nelda Cary Primary Care Physician Unavailable Payers Type Date Identification Numbers Payment Provider Subscriber Health Maintenance Effective: Policy Number: [employer]Jenniferus Silas Sultana Organization (O) 05/29/1998 [id number] Expires: 07/30/1999 PayID: [id number] [place] [address] [employer] Effective: 11/29/2014 Policy Number: Jennifer Sultana [id number] Group Name: [facility] [id number] PayID: [id number] [place] [address] Problems Date Description Provider Status Onset: 03/09/2012 Acute bronchitis Kenisha Mosley M.D. Active Onset: 09/15/2013 Overweight Nelda Cary M.D. Active Onset: 09/15/2013 Arthralgia of the ankle and/or foot Nelda Cary M.D. Active Onset: 09/15/2013 Arthralgia of the lower leg Nelda Cary M.D. Active Family History Date Family Member(s) Problem(s) Comments Father 79 Mother 73 Children 2 step sons from. One is at doing well, other son lives at home part-time with shared custody - he's doing well. First Son 9 First Daughter 16 First Brother 36 Second Brother 57 First Sister 49 Second Sister 48 Third Sister 52 Social History Type Date Description Comments Education Highest level completed, Bachelor's Degree Education [employer], History and Norwegian Studies Marital Status Marital Status Lives With Daughter Lives With Son Lives With Spouse Lives With and 's two boys. 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 Smoking Nonsmoker Daily Caffeine Consumes on average 3 cups of coffee per day Exercise Type/Frequency Exercises regularly walks 3-5 miles daily. Exercise Type/Frequency wears a fitbit daily [employer]. walking 5 miles a day, divided up. Contraceptive Methods Current methods include vasectomy Dom Violence Screen screening has been done Dom Violence Screen feels safe at home, at work and in the community Allergies, Adverse Reactions, Alerts Date Description Reaction Status Severity Comments 02/24/2012 Erythromycin active severe abdmonial cramps 01/29/2016 Avocados Nausea and Vomiting active Medications Medication Date Status Form Strength Qnty SIG Indications Ordering Provider Escitalopram 11/25 Active Tablets 10mg 90tab 1 by mouth F41.9 Huong Oxalate s every day Dandy, REGIONAL COORDINATOR Lorazepam 02/18 Active Tablets 1mg 30tab 1 by mouth F43.22 Huong /2017 s daily as Dandy, needed REGIONAL COORDINATOR insomnia Flonase 01/10 Active Suspension 50mcg/Act 1Mdi 1 spray to R42 Huong Allergy /2018 each Dandy, Relief nostril REGIONAL COORDINATOR every day Butalbital/Ac 01/10 Active Capsules 50-300-40 240ca 1-2 by R51 Huong etaminophen/C /2018 mg ps mouth every Dandy, affeine 6 hours REGIONAL COORDINATOR Sumatriptan 12/24 Active Tablets 25mg 9tabs 1 by mouth Huong Succinate at onset of Dandy, migraine, REGIONAL COORDINATOR may repeat if migraine not 100% gone in 4 hours, by mouth Loratadine 08/24 Active Capsules 10mg 30cap 1 by mouth Huong /2016 s twice a day Dandy, [facility] Biotin Active Tablets 10,000mcg Unknown Verapamil HCL Active Tablets 80mg 1 by mouth two times a day Caltrate 600 Active Tablets 1500(600C 2 daily Unknown 0000 a) mg Opurity Active Tablets 1 po qd Unknown Opurity/Iron Active Tablets daily Escitalopram 10/27 Hx Tablets 5mg 90tab 1 by mouth F41.9 Huong Oxalate s every day Danyd, - [facility] 11/25 Medrol 01/10 Hx Tablets 4mg 1pack dose-pack R42 Huong /2018 as [facility], - instructed [facility] 02/18 Promethazine 12/24 Hx Solution 25mg/ml R51 Huong HCL Dandy, - [facility] 12/24 Depo-Medrol 12/24 Hx Suspension 80mg/ml 100 mg R51 Huong /2018 administere Dandy, - d in office [facility] 01/10 by radha /2017 [facility] Promethazine 12/24 Hx Solution 25mg/ml 12.5 mg Im Huong HCL administere Dandy, - d by Radha [facility] 01/10 [facility] /[address] [place] [address] in clinic today Trazodone HCL 08/31 Hx Tablets 50mg 60tab 1 -2 by Huong s mouth every [facility], - night at [facility] 10/16 bedtime needed insomnia Ferrous 08/24 Hx Tablets 27mg 2 tabs PO Huong Sulfate qd Dandy, - [facility] 09/28 Doxycycline 04/16 Hx Capsules 100mg 20cap 1 by mouth Rosalba Hyclate s twice a day Radha, - Mayi-[facility] 04/26 Prednisone 09/30 Hx Concentrate 5mg/ml 225ml 40 mg by Ivan1 Nelda Church Intensol mouth x 3 Raeann, - days, 20 mg M.D. 11/26 by mouth x /2015 3 days, 10 mg by mouth x 3 days, 5 mg by mouth x 3 days. Lorazepam 09/30 Hx Solution 2mg/ml 30ml 0.5 F43.22 Eliecer Acuna /2016 milliliters Breiman, - by mouth at M.DJaime 02/18 night at at /2018 bedtime, and once during the night when you wake up. 30 days worth. Escitalopram 09/30 Hx Solution 5mg/5ML 300un 2 teaspoons F43.22 Nelda Ranjit Oxalate its daily by Raeann - mouth for M.D. 04/16 anxiety. /2016 Clotrimazole/ 01/02 Hx Cream 1-0.05% 15gm apply to B35.4 Huong Betamethasone affected Dandy, Dipropionate - area, loewr REGIONAL COORDINATOR 09/30 abdomen , /2015 once a day Flonase 08/08 Hx Suspension 50mcg/Act 1unit 2 sprays s each Medicine - nostril qd [facility] [place] Singulair 10/06 Hx Tablets 10mg 30tab 1 po at hs. 995.3 Nelda Church /2012 s Teofilo Cary M.D. 08/08 Azithromycin 02/23 Hx Tablets 250mg 12tab take 2 461.0 Renae s tablets by Benito, - mouth x 3d REGIONAL COORDINATOR 09/15 then take tablet daily for next 6 days Claritin D 12/03 Hx 60uni 1 bid prn Eliecer Acuna 24HR /1999 Teofilo Oneil M.D. 09/15 Lodine XL 08/20 Hx 400mg 14uni 1 PO bid Eliecer Acuna /1998 Teofilo Oneil M.D. 12/03 Keflex 03/12 Hx 5Oomg 20uni 1 PO bid Lior TJaime /1998 Teofilo Green M.D. 03/22 Motrin 12/05 Hx 600mg 60uni 1 PO tid Lior TJaime /1998 Teofilo Sutton M.D. 08/20 Synalar 09/25 Hx 0.25Sol 0unit Apply qd To Eliecer Acuna s Scalp Rash Teofilo Li M.D. 12/05 Ortho 07/02 Hx 0unit 28D Eliecer Acuna Tricyclen s Teofilo Li M.D. 08/20 Amoxicillin 07/02 Hx 250mg 30uni 1 PO tid Eliecer Acuna /1997 Teofilo Oneil M.D. 12/05 Vitamin D Hx Capsules 2000Unit 1 po qd Unknown /0000 - 09/28 Flintstones Hx Chewtabs 60mg 2 PO qd Unknown Complete /0000 - 09/28 Nasonex Hx Suspension 50mcg/Act 2 sprays Unknown /0000 qhs each - nostril 08/08 Vitamin B-12 Hx Tablets 5000mcg 100ta 1 by mouth Unknown /0000 bs every day - 09/28 Calcium Hx Tablets 4 by mouth Unknown /0000 every day - 09/28 Mucinex D Hx Tablets ER 60-600mg 1 tablet by Unknown /0000 12HR mouth every - 12 hours as 08/03 Medications Administered in Office Medication Date Status Form Strength Qnty SIG Indications Ordering Provider Injection Injection Huong Subcutaneous Or 2018 Dandy, Intramuscular REGIONAL COORDINATOR Immunizations CPT Code Status Date Vaccine Lot # [id number] Given 09/29/2018 Influenza Vac, Quadrivalent, Slit Virus, Im [id number] Given 08/24/2017 Influenza Vac, Quadrivalent, Slit Virus, Im [id number] 10140 Given 08/16/2016 Influenza Vac, [place], [place] [id number] Given 09/15/2013 Tdap Tetanus, W Pertussis [id number] Given 09/15/2013 DO Not Use Split Influenza Virus Vaccine [id number] Given 12/03/1999 Varicella (Chicken Pox) Immunization Vital Signs Date Vital Result Comment 11/25/2018 BP Systolic 122 mmHg BP Diastolic 90 mmHg Heart Rate 80 /min Body Temperature 97.9 F Height 65.5 inches 5'5.50" Weight 193.00 lb BMI (Body Mass Index) 31.6 kg/m2 10/27/2018 BP Systolic 124 mmHg BP Diastolic 82 mmHg Heart Rate 68 /min Body Temperature 98.4 F Respiratory Rate 16 /min Height 65.5 inches 5'5.50" Weight 195.00 lb BMI (Body Mass Index) 32.0 kg/m2 09/29/2018 BP Systolic 122 mmHg BP Diastolic 70 mmHg Heart Rate 86 /min Body Temperature 98.6 F Height 65.5 inches 5'5.50" Weight 195.00 lb BMI (Body Mass Index) 32.0 kg/m2 08/03/2018 BP Systolic 120 mmHg BP Diastolic 69 mmHg Heart Rate 78 /min Body Temperature 98.4 F Respiratory Rate 20 /min Weight 192.25 lb 01/10/2018 BP Systolic 102 mmHg BP Diastolic 72 mmHg Heart Rate 68 /min Body Temperature 98.1 F Height 65.5 inches 5'5.50" Weight 192.50 lb BMI (Body Mass Index) 31.5 kg/m2 12/24/2017 BP Systolic 100 mmHg BP Diastolic 64 mmHg Heart Rate 68 /min Body Temperature 98.2 F Respiratory Rate 16 /min Height 65.5 inches 5'5.50" Weight 191.38 lb BMI (Body Mass Index) 31.4 kg/m2 08/24/2017 BP Systolic 112 mmHg BP Diastolic 68 mmHg Heart Rate 76 /min Body Temperature 99.0 F Respiratory Rate 16 /min Height 65.5 inches 5'5.50" Weight 180.38 lb BMI (Body Mass Index) 29.6 kg/m2 04/16/2017 BP Systolic 120 mmHg BP Diastolic 80 mmHg Heart Rate 68 /min Body Temperature 97.9 F Respiratory Rate 18 /min Height 65.5 inches 5'5.50" Weight 171.00 lb BMI (Body Mass Index) 28.0 kg/m2 02/16/2017 BP Systolic 112 mmHg BP Diastolic 64 mmHg Heart Rate 60 /min Body Temperature 98.8 F Respiratory Rate 16 /min Height 65.5 inches 5'5.50" Weight 164.12 lb BMI (Body Mass Index) 26.9 kg/m2 11/26/2016 BP Systolic 118 mmHg BP Diastolic 72 mmHg Heart Rate 72 /min Body Temperature 99.0 F Respiratory Rate 16 /min Height 65.5 inches 5'5.50" Weight 151.00 lb BMI (Body Mass Index) 24.7 kg/m2 09/30/2016 BP Systolic 102 mmHg BP Diastolic 60 mmHg Heart Rate 84 /min Body Temperature 99.7 F Respiratory Rate 16 /min Height 65.5 inches 5'5.50" Weight 156.38 lb BMI (Body Mass Index) 25.6 kg/m2 01/28/2016 BP Systolic 110 mmHg BP Diastolic 70 mmHg Heart Rate 72 /min Body Temperature 98.8 F Respiratory Rate 18 /min Height 65.5 inches 5'5.50" Weight 154.00 lb BMI (Body Mass Index) 25.2 kg/m2 01/02/2016 BP Systolic 100 mmHg BP Diastolic 60 mmHg Heart Rate 68 /min Body Temperature 98.8 F Respiratory Rate 16 /min Height 66 inches 5'6" Weight 151.50 lb BMI (Body Mass Index) 24.5 kg/m2 12/18/2014 BP Systolic 100 mmHg BP Diastolic 70 mmHg Heart Rate 60 /min Body Temperature 98.3 F Respiratory Rate 18 /min Height 66 inches 5'6" Weight 178.00 lb BMI (Body Mass Index) 28.7 kg/m2 08/08/2014 BP Systolic 130 mmHg BP Diastolic 88 mmHg Heart Rate 100 /min Body Temperature 98.9 F Respiratory Rate 18 /min Height 65.25 inches 5'5.25" Weight 208.00 lb BMI (Body Mass Index) 34.3 kg/m2 10/06/2013 BP Systolic 118 mmHg BP Diastolic 80 mmHg Heart Rate 64 /min Body Temperature 99.1 F Respiratory Rate 17 /min Height 65.25 inches 5'5.25" Weight 266.00 lb BMI (Body Mass Index) 43.9 kg/m2 09/15/2013 BP Systolic 118 mmHg BP Diastolic 82 mmHg Heart Rate 96 /min Body Temperature 99.0 F Respiratory Rate 18 /min Height 65.25 inches 5'5.25" Weight 272.25 lb BMI (Body Mass Index) 45.0 kg/m2 03/09/2012 BP Systolic 120 mmHg BP Diastolic 82 mmHg Heart Rate 90 /min Body Temperature 99.1 F O2 % BldC Oximetry 99 % Height 66.75 inches 5'6.75" Weight 280.00 lb BMI (Body Mass Index) 44.2 kg/m2 02/24/2012 BP Systolic 116 mmHg BP Diastolic 86 mmHg Heart Rate 84 /min Body Temperature 98.8 F Height 66.75 inches 5'6.75" Weight 286.00 lb BMI (Body Mass Index) 45.1 kg/m2 12/03/1999 Height 66 inches 5'6" Weight 214.00 lb BMI (Body Mass Index) 34.5 kg/m2 08/20/1999 BP Systolic 106 mmHg LG Cuff BP Diastolic 70 mmHg LG Cuff Height 66 inches 5'6" Weight 218.50 lb 12/05/1998 Weight 232.00 lb 07/02/1998 BP Systolic 104 mmHg LG Cuff BP Diastolic 76 mmHg LG Cuff Body Temperature 98.1 F Height 66 inches 5'6" Weight 224.00 lb Results Test Date Test Result H/L Range Note Laboratory test finding 10/31/2018 Insulin Level 2.1 mcIU/mL 2.0-16.0 1 , 2 Anti Nuclear Antibody 0.4 U 1, 3 Proinsulin 6.2 pmol/L 3.6-22 1, 4 Random Urine Glucose 10/31/2018 Glucose, U 0.13 g/24h 1, 5 Collection Duration 24 h 1 Urine Volume 1300 mL 1 Glucose Concentration 10 mg/dL 1, 6 Comprehensive Metabolic Prof 09/29/2018 Sodium 147 mEq/L 134-149 Potassium 4.6 mEq/L 3.6-5.5 Chloride 108 mEq/L 94-112 Carbon Dioxide 24 mEq/L 21-32 Glucose 44 mg/dL Low 70-105 7 BUN 12 mg/dL 6-26 Creatinine 0.7 mg/dL 0.6-1.4 BUN/Creat Ratio 17.1 CALC 8.0-36.0 Calcium 8.8 mg/dL 8.6-10.2 Total Protein 6.4 g/dL 6.4-8.3 Albumin 4.4 g/dL 3.8-5.5 Globulin 2.0 g/dL 2.0-4.8 A/G Ratio 2.2 CALC 0.6-2.3 Alk. Phosphatase 79 U/L 30-110 Alt (SGPT) 23 U/L 7-35 Ast (Sgot) 19 U/L 5-34 Total Bilirubin 0.2 mg/dL 0.2-1.3 GFR Non- >60 ml/min/1.73m^ >=60 GFR >60 ml/min/1.73m^ >=60 Lipid Profile 09/29/2018 Cholesterol 170 mg/dL 120-200 Triglycerides 70 mg/dL 30-200 HDL Cholesterol 92 mg/dL High 30-85 LDL (Calculated) 64 CALC 0-129 VLDL Cholesterol 14 mg/dL 0-50 HDL Risk Factor 1.8 CALC 0.0-4.4 Laboratory test finding 09/29/2018 TSH 3.37 mIU/L 0.50-6.00 CBC Electronic Fma 09/29/2018 WBC 6.5 x10^3/UL 4.0-10.0 RBC 4.39 x10^6/UL 3.93-6.00 HGB 14.1 g/dL 12.0-17.0 HCT 43 % 35-50 MCV 97.3 fL High 80.0-95.0 MCH 32.1 pg 25.6-32.2 MCHC 33.0 g/dL 32.2-36.0 RDW-CV 12.9 % 11.6-14.4 PLT 225 x10^3/UL 163-400 MPV 9.5 fL 9.4-12.4 Josef# 4.04 x10^3/UL 1.56-6.13 Lymph# 1.47 x10^3/UL 1.18-3.74 Maury# 0.64 x10^3/UL 0.24-0.82 Eos # 0.3 x10^3/UL 0.0-0.5 Baso # 0.04 x10^3/UL 0.01-0.08 Josef% 62.5 % 34.0-70.0 Lymph % 22.8 % 20.0-52.0 Maury% 9.9 % 5.0-12.0 Eos% 3.9 % 0.7-7.0 Baso% 0.6 % 0.1-1.2 Urinalysis Profile 02/04/2018 Urine Color Straw Urine Appearance Clear Urine Specific Marshall 1.004 Low 1.010-1.030 Urine pH 6.0 5-9 Urine Urobilinogen Negative Negative Urine Ketones Negative Negative Urine Protein Negative Negative Urine Leukocytes Negative Negative Urine Blood Negative Negative Urine Nitrite Negative Negative Urine Bilirubin Negative Negative Urine Glucose Negative Negative CBC Auto Diff 02/04/2018 White Blood Count 9.3 10^3/uL 3.5-10.8 Red Blood Count 4.36 10^6/uL 4.0-5.4 Hemoglobin 14.2 g/dL 12.0-16.0 Hematocrit 42 % 35-47 Mean Corpuscular Volume 96 fL 80-97 Mean Corpuscular Hemoglobin 33 pg High 27-31 Mean Corpuscular HGB Conc 34 g/dL 31-36 Red Cell Distribution Width 13 % 10.5-15 Platelet Count 197 10^3/uL 150-450 Mean Platelet Volume 8 um3 7.4-10.4 Abs Neutrophils 7.2 10^3/uL 1.5-7.7 Abs Lymphocytes 1.4 10^3/uL 1.0-4.8 Abs Monocytes 0.6 10^3/uL 0-0.8 Abs Eosinophils 0.2 10^3/uL 0-0.6 Abs Basophils 0 10^3/uL 0-0.2 Abs Nucleated RBC 0 10^3/uL Granulocyte % 76.9 % 38-83 Lymphocyte % 14.9 % Low 25-47 Monocyte % 6.1 % 0-7 Eosinophil % 1.8 % 0-6 Basophil % 0.3 % 0-2 Nucleated Red Blood Cells % 0 Laboratory test finding 02/04/2018 Lactic Acid 1.0 mmol/L 0.5-2.0 8 Comp Metabolic Panel 02/04/2018 Sodium 138 mmol/L 133-145 Potassium 3.7 mmol/L 3.5-5.0 Chloride 105 mmol/L 101-111 Co2 Carbon Dioxide 26 mmol/L 22-32 Anion Gap 7 mmol/L 2-11 Glucose 89 mg/dL 70-100 Blood Urea Nitrogen 9 mg/dL 6-24 Creatinine 0.60 mg/dL 0.51-0.95 BUN/Creatinine Ratio 15.0 8-20 Calcium 9.3 mg/dL 8.6-10.3 Total Protein 6.7 g/dL 6.4-8.9 Albumin 4.0 g/dL 3.2-5.2 Globulin 2.7 g/dL 2-4 Albumin/Globulin Ratio 1.5 1-3 Total Bilirubin 0.50 mg/dL 0.2-1.0 Alkaline Phosphatase 60 U/L 34-104 Alt 27 U/L 7-52 Ast 20 U/L 13-39 Egfr Non- 108.6 >60 Egfr 139.7 >60 9 Laboratory test finding 02/04/2018 Magnesium 2.0 mg/dL 1.9-2.7 Lipase 11 U/L 11.0-82.0 C Reactive Protein 54.13 mg/L High < 5.00 10 Blood Culture SEE RESULT BELOW 11 Iron And Tibc 08/24/2017 Iron Bind.Cap.(Tibc) 419 g/dL 250-450 12 Uibc 318 g/dL 131-425 12 Iron, Serum 101 g/dL 27-159 12 Iron Saturation 24 % 15-55 12 Laboratory test 08/24/2017 Vitamin B1 (Thiamine), 182.6 nmol/L 66.5- 200.0 12 finding Blood Vitamin E, Serum 14.9 mg/L 5.3-16.8 12 Comprehensive Metabolic Prof 08/24/2017 Sodium 140 mEq/L 134-149 Potassium 5.2 mEq/L 3.6-5.5 Chloride 103 mEq/L 94-112 Carbon Dioxide 26 mEq/L 21-32 Glucose 89 mg/dL 70-105 BUN 13 mg/dL 6-26 Creatinine 0.6 mg/dL 0.6-1.4 BUN/Creat Ratio 21.7 CALC 8.0-36.0 Calcium 9.1 mg/dL 8.6-10.2 Total Protein 7.0 g/dL 6.4-8.3 Albumin 4.5 g/dL 3.8-5.5 Globulin 2.5 g/dL 2.0-4.8 A/G Ratio 1.8 CALC 0.6-2.3 Alk. Phosphatase 65 U/L 30-110 Alt (SGPT) 22 U/L 7-35 Ast (Sgot) 24 U/L 5-34 Total Bilirubin 0.4 mg/dL 0.2-1.3 GFR Non- >60 ml/min/1.73m^ >=60 GFR >60 ml/min/1.73m^ >=60 Laboratory test finding 08/24/2017 Vitamin D25 49 30-100 Ferritin 14 ng/mL 6-115 Complete Blood Count 08/24/2017 WBC 5.4 x10^3/UL 3.6-9.6 RBC 4.34 x10^6/UL 3.90-5.70 HGB 13.4 g/dL 12.1-17.2 HCT 41 % 36-50 MCV 94.0 fL 82.2-97.4 MCH 30.9 pg 27.6-33.3 MCHC 33.0 g/dL 33.0-35.5 RDW 15.1 % High 11.6-13.7 PLT 313 x10^3/UL 150-400 MPV 7.0 fL Low 7.4-10.4 Gran # 3.5 x10^3/UL 1.5-7.2 Lymph# 1.6 x10^3/UL 0.7-4.9 Maury# 0.3 x10^3/UL 0.1-0.9 Gran % 61.9 % 42.2-75.2 Lymph % 31.2 % 20.5-51.1 Maury% 6.9 % 1.7-9.3 Laboratory test finding 08/24/2017 Vitamin B-12 >2000 pg/mL High 230-1050 Folate Level 15.00 ng/mL 3.00-16.00 Free T4 0.90 ng/dL 0.75-1.54 TSH 2.73 mIU/L 0.50-6.00 CBC Auto Diff 02/22/2017 White Blood Count 4.7 10^3/uL 3.5-10.8 Red Blood Count 4.42 10^6/uL 4.0-5.4 Hemoglobin 11.5 g/dL Low 12.0-16.0 Hematocrit 36 % 35-47 Mean Corpuscular Volume 82 fL 80-97 Mean Corpuscular Hemoglobin 26 pg Low 27-31 Mean Corpuscular HGB Conc 32 g/dL 31-36 Red Cell Distribution Width 15 % 10.5-15 Platelet Count 254 10^3/uL 150-450 Mean Platelet Volume 9 um3 7.4-10.4 Abs Neutrophils 2.6 10^3/uL 1.5-7.7 Abs Lymphocytes 1.3 10^3/uL 1.0-4.8 Abs Monocytes 0.5 10^3/uL 0-0.8 Abs Eosinophils 0.3 10^3/uL 0-0.6 Abs Basophils 0.1 10^3/uL 0-0.2 Abs Nucleated RBC 0 10^3/uL Granulocyte % 55.9 % 38-83 Lymphocyte % 26.6 % 25-47 Monocyte % 10.5 % High 1-9 Eosinophil % 5.6 % 0-6 Basophil % 1.4 % 0-2 Nucleated Red Blood Cells % 0 Comp Metabolic Panel 02/22/2017 Sodium 137 mmol/L 133-145 Potassium 3.9 mmol/L 3.5-5.0 Chloride 105 mmol/L 101-111 Co2 Carbon Dioxide 27 mmol/L 22-32 Anion Gap 5 mmol/L 2-11 Glucose 87 mg/dL 70-100 Blood Urea Nitrogen 13 mg/dL 6-24 Creatinine 0.73 mg/dL 0.51-0.95 BUN/Creatinine Ratio 17.8 8-20 Calcium 9.0 mg/dL 8.6-10.3 Total Protein 6.8 g/dL 6.4-8.9 Albumin 4.1 g/dL 3.2-5.2 Globulin 2.7 g/dL 2-4 Albumin/Globulin Ratio 1.5 1-3 Total Bilirubin 0.50 mg/dL 0.2-1.0 Alkaline Phosphatase 59 U/L 34-104 Alt 18 U/L 7-52 Ast 23 U/L 13-39 Egfr Non- 87.0 >60 Egfr 111.9 >60 13 Iron & Iron Binding Capacity 02/22/2017 Iron 78 g/dL 50-212 Unsaturated Iron Binding 448 g/dL Total Iron Binding Capacity 526 g/dL High 250-450 % Iron Saturation 15 % 15-55 Laboratory test finding 02/22/2017 Ferritin < 10.0 ng/mL Low 11-307 Vitamin B12 1404 pg/mL High 180-914 14 Folic Acid (Folate) > 20.00 ng/mL >3.99 Vitamin D Total 25(Oh) 44.6 ng/mL 30-50 Vitamin E Level 10.9 mg/L 5.5 - 17.0 15 Vitamin B1 (Whole Blood) 151 nmol/L 70-180 16 Laboratory test finding 10/20/2016 (HCG) Urine Negative Negative 17 Laboratory test finding 08/05/2016 Lactic Acid 1.0 mmol/L 0.5-2.0 18 Urinalysis Profile 08/05/2016 Urine Color Straw Urine Appearance Clear Urine Specific Marshall 1.001 Low 1.010-1.030 Urine pH 6.0 5-9 Urine Urobilinogen Negative Negative Urine Ketones Negative Negative Urine Protein Negative Negative Urine Leukocytes Negative Negative Urine Blood Negative Negative Urine Nitrite Negative Negative Urine Bilirubin Negative Negative Urine Glucose Negative Negative CBC Auto Diff 08/05/2016 White Blood Count 6.2 10^3/uL 3.5-10.8 Red Blood Count 4.20 10^6/uL 4.0-5.4 Hemoglobin 11.7 g/dL Low 12.0-16.0 Hematocrit 36 % 35-47 Mean Corpuscular Volume 85 fL 80-97 Mean Corpuscular Hemoglobin 28 pg 27-31 Mean Corpuscular HGB Conc 33 g/dL 31-36 Red Cell Distribution Width 14 % 10.5-15 Platelet Count 240 10^3/uL 150-450 Mean Platelet Volume 9 um3 7.4-10.4 Abs Neutrophils 3.2 10^3/uL 1.5-7.7 Abs Lymphocytes 2.3 10^3/uL 1.0-4.8 Abs Monocytes 0.5 10^3/uL 0-0.8 Abs Eosinophils 0 10^3/uL 0-0.6 Abs Basophils 0.1 10^3/uL 0-0.2 Abs Nucleated RBC 0 10^3/uL Granulocyte % 51.8 % 38-83 Lymphocyte % 38.0 % 25-47 Monocyte % 8.9 % 1-9 Eosinophil % 0 % 0-6 Basophil % 1.3 % 0-2 Nucleated Red Blood Cells % 0.1 Comp Metabolic Panel 08/05/2016 Sodium 138 mmol/L 133-145 Potassium 3.9 mmol/L 3.5-5.0 Chloride 105 mmol/L 101-111 Co2 Carbon Dioxide 26 mmol/L 22-32 Anion Gap 7 mmol/L 2-11 Glucose 83 mg/dL 70-100 Blood Urea Nitrogen 10 mg/dL 6-24 Creatinine 0.63 mg/dL 0.51-0.95 BUN/Creatinine Ratio 15.9 8-20 Calcium 9.3 mg/dL 8.6-10.3 Total Protein 6.6 g/dL 6.4-8.9 Albumin 4.0 g/dL 3.2-5.2 Globulin 2.6 g/dL 2-4 Albumin/Globulin Ratio 1.5 1-3 Total Bilirubin 0.30 mg/dL 0.2-1.0 Alkaline Phosphatase 60 U/L 34-104 Alt 20 U/L 7-52 Ast 20 U/L 13-39 Egfr Non- 103.6 >60 Egfr 133.3 >60 19 Laboratory test finding 08/05/2016 Lipase 28 U/L 11.0-82.0 C Reactive Protein < 1.00 mg/L < 5.00 20 Lipid Panel-[facility] 02/21/2016 Triglycerides 50 mg/dL 21 Cholesterol 157 mg/dL 22 HDL Cholesterol 67.7 mg/dL 23 LDL Cholesterol 79 mg/dL 24 Laboratory test finding 02/21/2016 Vitamin D Total 25(Oh) 37.3 ng/mL 30- 50 25 TSH (Thyroid Stim Horm) 2.57 ?IU/mL 0.34-5.60 Free T4 (Free Thyroxine) 0.91 ng/dL 0.61-1.12 CBC Auto Diff 02/21/2016 White Blood Count 4.2 10^3/uL 3.5-10.8 Red Blood Count 4.39 10^6/uL 4.0-5.4 Hemoglobin 12.8 g/dL 12.0-16.0 Hematocrit 40 % 35-47 Mean Corpuscular Volume 91 fL 80-97 Mean Corpuscular Hemoglobin 29 pg 27-31 Mean Corpuscular HGB Conc 32 g/dL 31-36 Red Cell Distribution Width 13 % 10.5-15 Platelet Count 232 10^3/uL 150-450 Mean Platelet Volume 9 um3 7.4-10.4 Abs Neutrophils 2.5 10^3/uL 1.5-7.7 Abs Lymphocytes 1.2 10^3/uL 1.0-4.8 Abs Monocytes 0.4 10^3/uL 0-0.8 Abs Eosinophils 0.1 10^3/uL 0-0.6 Abs Basophils 0 10^3/uL 0-0.2 Abs Nucleated RBC 0 10^3/uL Granulocyte % 60.2 % 38-83 Lymphocyte % 29.6 % 25-47 Monocyte % 8.3 % 1-9 Eosinophil % 1.4 % 0-6 Basophil % 0.5 % 0-2 Nucleated Red Blood Cells % 0.1 Comp Metabolic Panel 02/21/2016 Sodium 139 mmol/L 133-145 Potassium 4.3 mmol/L 3.5-5.0 Chloride 104 mmol/L 101-111 Co2 Carbon Dioxide 30 mmol/L 22-32 Anion Gap 5 mmol/L 2-11 Glucose 86 mg/dL 70-100 Blood Urea Nitrogen 14 mg/dL 6-24 Creatinine 0.71 mg/dL 0.51-0.95 BUN/Creatinine Ratio 19.7 8-20 Calcium 9.1 mg/dL 8.6-10.3 Total Protein 6.4 g/dL 6.4-8.9 Albumin 4.0 g/dL 3.2-5.2 Globulin 2.4 g/dL 2-4 Albumin/Globulin Ratio 1.7 1-3 Total Bilirubin 0.40 mg/dL 0.2-1.0 Alkaline Phosphatase 66 U/L 34-104 Alt 20 U/L 7-52 Ast 19 U/L 13-39 Egfr Non- 90.3 >60 Egfr 116.1 >60 26 Iron & Iron Binding Capacity 02/21/2016 Iron 101 g/dL 50-212 Unsaturated Iron Binding 326 g/dL Total Iron Binding Capacity 427 g/dL 250-450 % Iron Saturation 24 % 15-55 Laboratory test finding 02/21/2016 Ferritin < 10.0 ng/mL Low 11-307 27 Folic Acid (Folate) > 20.00 ng/mL >3.99 28 Vitamin B12 670 pg/mL 180-914 29 Vitamin D Total 25(Oh) 38.1 ng/mL 30-50 30 Vitamin E Level 11.3 mg/L 5.5 - 17.0 31 Vitamin B1 (Whole Blood) 106 nmol/L 70-180 32 CBC Auto Diff 11/13/2015 White Blood Count 4.8 10^3/uL 3.5-10.8 Red Blood Count 4.69 10^6/uL 4.0-5.4 Hemoglobin 14.3 g/dL 12.0-16.0 Hematocrit 44 % 35-47 Mean Corpuscular Volume 93 fL 80-97 Mean Corpuscular Hemoglobin 30 pg 27-31 Mean Corpuscular HGB Conc 33 g/dL 31-36 Red Cell Distribution Width 13 % 10.5-15 Platelet Count 216 10^3/uL 150-450 Mean Platelet Volume 8 um3 7.4-10.4 Abs Neutrophils 3.1 10^3/uL 1.5-7.7 Abs Lymphocytes 1.3 10^3/uL 1.0-4.8 Abs Monocytes 0.4 10^3/uL 0-0.8 Abs Eosinophils 0.1 10^3/uL 0-0.6 Abs Basophils 0 10^3/uL 0-0.2 Abs Nucleated RBC 0.01 10^3/uL Granulocyte % 63.7 % 38-83 Lymphocyte % 26.3 % 25-47 Monocyte % 7.9 % 1-9 Eosinophil % 1.4 % 0-6 Basophil % 0.7 % 0-2 Nucleated Red Blood Cells % 0.1 Comp Metabolic Panel 11/13/2015 Sodium 135 mmol/L 133-145 Potassium 4.1 mmol/L 3.5-5.0 Chloride 103 mmol/L 101-111 Co2 Carbon Dioxide 24 mmol/L 22-32 Anion Gap 8 mmol/L 2-11 Glucose 96 mg/dL 70-100 Blood Urea Nitrogen 14 mg/dL 6-24 Creatinine 0.76 mg/dL 0.51-0.95 BUN/Creatinine Ratio 18.4 8-20 Calcium 9.4 mg/dL 8.6-10.3 Total Protein 7.1 g/dL 6.4-8.9 Albumin 4.2 g/dL 3.2-5.2 Globulin 2.9 g/dL 2-4 Albumin/Globulin Ratio 1.4 1-3 Total Bilirubin 0.50 mg/dL 0.2-1.0 Alkaline Phosphatase 63 U/L 34-104 Alt 18 U/L 7-52 Ast 17 U/L 13-39 Egfr Non- 83.5 >60 Egfr 107.3 >60 33 Laboratory test finding 11/13/2015 Magnesium 1.9 mg/dL 1.9-2.7 Lipase 24 U/L 11.0-82.0 C Reactive Protein < 1.00 mg/L < 5.00 34 Lactic Acid 1.1 mmol/L 0.5-2.0 35 Urinalysis Profile 11/13/2015 Urine Color Yellow Urine Appearance Clear Urine Specific Marshall 1.010 1.010-1.030 Urine pH 6.0 5-9 Urine Urobilinogen Negative Negative Urine Ketones Trace Negative Urine Protein Negative Negative Urine Leukocytes Trace Negative Urine Blood Negative Negative * * Negative 36 Urine Nitrite Negative Negative Urine Bilirubin Negative Negative Urine Glucose Negative Negative Urine White Blood Cell Trace(0-5/hpf) Absent Urine Red Blood Cell Absent Absent Urine Bacteria Absent Absent Urine Squamous Epithelial Cell Present Absent Laboratory test finding 11/13/2015 Urine Culture And SEE RESULT BELOW 37 Sensitivities Urinalysis Profile 02/26/2015 Urine Color Yellow Urine Appearance Cloudy Urine Specific Marshall 1.030 1.010-1.030 Urine pH 5.0 5-9 Urine Urobilinogen Negative Negative Urine Ketones 1+ Negative Urine Protein Negative Negative Urine Leukocytes Negative Negative Urine Blood Negative Negative * * Negative 38 Urine Nitrite Negative Negative Urine Bilirubin Negative Negative Urine Glucose Negative Negative CBC Auto Diff 02/25/2015 White Blood Count 6.7 10^3/uL 4.8-10.8 Red Blood Count 4.54 10^6/uL 4.0-5.4 Hemoglobin 14.2 g/dL 12.0-16.0 Hematocrit 42 % 35-47 Mean Corpuscular Volume 93 fL 80-97 Mean Corpuscular Hemoglobin 31 pg 27-31 Mean Corpuscular HGB Conc 34 g/dL 31-36 Red Cell Distribution Width 13 % 10.5-15 Platelet Count 203 10^3/uL 150-450 Mean Platelet Volume 9 um3 7.4-10.4 Abs Neutrophils 4.4 10^3/uL 1.5-7.7 Abs Lymphocytes 1.7 10^3/uL 1.0-4.8 Abs Monocytes 0.4 10^3/uL 0-0.8 Abs Eosinophils 0.1 10^3/uL 0-0.6 Abs Basophils 0 10^3/uL 0-0.2 Abs Nucleated RBC 0 10^3/uL Granulocyte % 65.3 % 38-83 Lymphocyte % 25.8 % 25-47 Monocyte % 6.2 % 1-9 Eosinophil % 2.0 % 0-6 Basophil % 0.7 % 0-2 Nucleated Red Blood Cells % 0.1 Inr/Protime 02/25/2015 Inr 1.04 0.78-1.07 Laboratory test finding 02/25/2015 Activated Partial 35.2 seconds 26.0- 36.3 Thrombo Time Comp Metabolic Panel 02/25/2015 Sodium 137 mmol/L 133-145 Potassium 3.7 mmol/L 3.5-5.0 Chloride 106 mmol/L 101-111 Co2 Carbon Dioxide 25 mmol/L 22-32 Anion Gap 6 mmol/L 2-11 Glucose 90 mg/dL 70-100 Blood Urea Nitrogen 14 mg/dL 6-24 Creatinine 0.74 mg/dL 0.51-0.95 BUN/Creatinine Ratio 18.9 8-20 Calcium 9.1 mg/dL 8.6-10.3 Total Protein 6.6 g/dL 6.4-8.9 Albumin 3.9 g/dL 3.2-5.2 Globulin 2.7 g/dL 2-4 Albumin/Globulin Ratio 1.4 1-3 Total Bilirubin 0.40 mg/dL 0.2-1.0 Alkaline Phosphatase 77 U/L 34-104 Alt 19 U/L 7-52 Ast 17 U/L 13-39 Egfr Non- 86.5 >60 Egfr 111.2 >60 39 Laboratory test finding 02/25/2015 Lipase 21 U/L 11.0-82.0 C Reactive Protein < 1.00 mg/L < 5.00 40 CBC Auto Diff 12/20/2014 White Blood Count 4.9 10^3/uL 4.8-10.8 41 Red Blood Count 4.61 10^6/uL 4.0-5.4 41 Hemoglobin 14.1 g/dL 12.0-16.0 41 Hematocrit 43 % 35-47 41 Mean Corpuscular Volume 92 fL 80-97 41 Mean Corpuscular Hemoglobin 31 pg 27-31 41 Mean Corpuscular HGB Conc 33 g/dL 31-36 41 Red Cell Distribution Width 14 % 10.5-15 41 Platelet Count 217 10^3/uL 150-450 41 Mean Platelet Volume 9 um3 7.4-10.4 41 Abs Neutrophils 3.0 10^3/uL 1.5-7.7 41 Abs Lymphocytes 1.2 10^3/uL 1.0-4.8 41 Abs Monocytes 0.4 10^3/uL 0-0.8 41 Abs Eosinophils 0.1 10^3/uL 0-0.6 41 Abs Basophils 0 10^3/uL 0-0.2 41 Abs Nucleated RBC 0 10^3/uL 41 Granulocyte % 62.0 % 38-83 41 Lymphocyte % 25.4 % 25-47 41 Monocyte % 9.1 % High 1-9 41 Eosinophil % 2.9 % 0-6 41 Basophil % 0.6 % 0-2 41 Nucleated Red Blood Cells % 0 41 Comp Metabolic Panel 12/20/2014 Sodium 135 mmol/L 133-145 41 Potassium 4.2 mmol/L 3.5-5.0 41 Chloride 104 mmol/L 101-111 41 Co2 Carbon Dioxide 29 mmol/L 22-32 41 Anion Gap 2 mmol/L 2-11 41 Glucose 93 mg/dL 70-100 41 Blood Urea Nitrogen 15 mg/dL 6-24 41 Creatinine 0.80 mg/dL 0.51-0.95 41 BUN/Creatinine Ratio 18.8 8-20 41 Calcium 9.4 mg/dL 8.6-10.3 41 Total Protein 6.9 g/dL 6.4-8.9 41 Albumin 4.0 g/dL 3.2-5.2 41 Globulin 2.9 g/dL 2-4 41 Albumin/Globulin Ratio 1.4 1-3 41 Total Bilirubin 0.50 mg/dL 0.2-1.0 41 Alkaline Phosphatase 74 U/L 34-104 41 Alt 22 U/L 7-52 41 Ast 18 U/L 13-39 41 Egfr Non- 79.0 >60 41 Egfr 101.7 >60 41, 42 Laboratory test finding 12/20/2014 Vitamin B1 Whole Blood 143 nmol/L 70- 180 41, 43 Vitamin E Level 9.5 mg/L 5.5 - 17.0 41, 44 Vitamin D, 25 Hydroxy 12/20/2014 25-Hydroxy Vitamin D2 <4.0 ng/mL 41 25-Hydroxy Vitamin D3 47 ng/mL 41 25-Hydroxy Vitamin D Total 47 ng/mL 41, 45 Iron & Iron Binding Capacity 12/20/2014 Iron 122 g/dL 50-212 41 Unsaturated Iron Binding 210 g/dL 41 Total Iron Binding Capacity 332 g/dL 250-450 41 % Iron Saturation 37 % 15-55 41 Laboratory test finding 12/20/2014 Ferritin 28.6 ng/mL 11-307 41, 46 Vitamin B12 706 pg/mL 180-914 41, 47 Folate > 20.00 ng/mL >3.99 41, 48 Laboratory test finding 12/18/2014 TSH 4.22 mIU/L 0.50-6.00 Ua - Non Micro (a) 12/18/2014 Appearance CLEAR Color YELLOW Glucose, Urine (a/[facility] [place]) NEG Bilirubin NEG Ketones 40 SP Grav 1.025 Blood NEG PH 5.5 Protein NEG Urobil 0.2 Nitrite NEG Leukocytes (a/[facility] [place]) NEG Vitamin D, 25 Hydroxy 08/29/2014 25-Hydroxy Vitamin D2 <4.0 ng/mL 25-Hydroxy Vitamin D3 44 ng/mL 25-Hydroxy Vitamin D Total 44 ng/mL 49 CBC Auto Diff 08/29/2014 White Blood Count 5.5 10^3/uL 4.8-10.8 Red Blood Count 4.58 10^6/uL 4.0-5.4 Hemoglobin 14.1 g/dL 12.0-16.0 Hematocrit 42 % 35-47 Mean Corpuscular Volume 92 fL 80-97 Mean Corpuscular Hemoglobin 31 pg 27-31 Mean Corpuscular HGB Conc 33 g/dL 31-36 Red Cell Distribution Width 14 % 10.5-15 Platelet Count 235 10^3/uL 150-450 Mean Platelet Volume 9 um3 7.4-10.4 Abs Neutrophils 3.4 10^3/uL 1.5-7.7 Abs Lymphocytes 1.4 10^3/uL 1.0-4.8 Abs Monocytes 0.4 10^3/uL 0-0.8 Abs Eosinophils 0.2 10^3/uL 0-0.6 Abs Basophils 0 10^3/uL 0-0.2 Abs Nucleated RBC 0.01 10^3/uL Granulocyte % 61.6 % 38-83 Lymphocyte % 26.2 % 25-47 Monocyte % 7.9 % 1-9 Eosinophil % 3.6 % 0-6 Basophil % 0.7 % 0-2 Nucleated Red Blood Cells % 0.1 Laboratory test finding 08/29/2014 Vitamin B1 Whole Blood 121 nmol/L 70- 180 50 Vitamin E Level 10.4 mg/L 5.5 - 17.0 51 Comp Metabolic Panel 08/29/2014 Sodium 137 mmol/L 133-145 Potassium 4.3 mmol/L 3.7-5.6 Chloride 104 mmol/L 101-111 Co2 Carbon Dioxide 30 mmol/L 22-32 Anion Gap 3 mmol/L 2-11 Glucose 90 mg/dL 70-100 Blood Urea Nitrogen 12 mg/dL 6-24 Creatinine 0.74 mg/dL 0.51-0.95 BUN/Creatinine Ratio 16.2 8-20 Calcium 9.3 mg/dL 8.6-10.3 Total Protein 7.0 g/dL 6.4-8.9 Albumin 4.0 g/dL 3.2-5.2 Globulin 3.0 g/dL 2-4 Albumin/Globulin Ratio 1.3 1-3 Total Bilirubin 0.40 mg/dL 0.2-1.0 Alkaline Phosphatase 82 U/L 34-104 Alt 17 U/L 7-52 Ast 16 U/L 13-39 Egfr Non- 86.5 >60 Egfr 111.2 >60 52 Iron & Iron Binding Capacity 08/29/2014 Iron 80 g/dL 50-212 Unsaturated Iron Binding 225 g/dL Total Iron Binding Capacity 305 g/dL 250-450 % Iron Saturation 26 % 15-55 Laboratory test finding 08/29/2014 Ferritin 39.3 ng/mL 11-307 Vitamin B12 749 pg/mL 180-914 53 Folate > 20.00 ng/mL >3.99 CBC Auto Diff 03/08/2014 White Blood Count 7.7 10^3/uL 4.8-10.8 Red Blood Count 4.62 10^6/uL 4.0-5.4 Hemoglobin 13.8 g/dL 12.0-16.0 Hematocrit 41 % 35-47 Mean Corpuscular Volume 90 fL 80-97 Mean Corpuscular Hemoglobin 30 pg 27-31 Mean Corpuscular HGB Conc 33 g/dL 31-36 Red Cell Distribution Width 14 % 10.5-15 Platelet Count 285 10^3/uL 150-450 Mean Platelet Volume 8 um3 7.4-10.4 Abs Neutrophils 5.4 10^3/uL 1.5-7.7 Abs Lymphocytes 1.6 10^3/uL 1.0-4.8 Abs Monocytes 0.6 10^3/uL 0-0.8 Abs Eosinophils 0.2 10^3/uL 0-0.6 Abs Basophils 0 10^3/uL 0-0.2 Abs Nucleated RBC 0 10^3/uL Granulocyte % 69.7 % 38-83 Lymphocyte % 20.4 % Low 25-47 Monocyte % 7.5 % 1-9 Eosinophil % 1.9 % 0-6 Basophil % 0.5 % 0-2 Nucleated Red Blood Cells % 0 Comp Metabolic Panel 03/08/2014 Sodium 135 mmol/L 133-145 Potassium 4.8 mmol/L 3.7-5.6 Chloride 99 mmol/L Low 101-111 Co2 Carbon Dioxide 29 mmol/L 22-32 Anion Gap 7 mmol/L 2-11 Glucose 78 mg/dL 70-100 Blood Urea Nitrogen 18 mg/dL 6-24 Creatinine 0.71 mg/dL 0.51-0.95 BUN/Creatinine Ratio 25.4 High 8-20 Calcium 9.6 mg/dL 8.6-10.3 Total Protein 7.1 g/dL 6.4-8.9 Albumin 4.3 g/dL 3.2-5.2 Globulin 2.8 g/dL 2-4 Albumin/Globulin Ratio 1.5 1-3 Total Bilirubin 0.50 mg/dL 0.2-1.0 Alkaline Phosphatase 82 U/L 34-104 Alt 32 U/L 7-52 Ast 22 U/L 13-39 Egfr Non- 91.2 >60 Egfr 117.3 >60 54 Type & Screen 03/08/2014 Patient Blood Type O Positive Antibody Screen NEGATIVE Ua - Non Micro (Fma) 09/15/2013 Appearance CLEAR Color YELLOW Glucose NEG Bilirubin NEG Ketones 15MG/DL SP Grav >=1.030 Blood TRACE-LYSED Menses PH 5.5 Protein NEG Urobil 0.2 Nitrite NEG Leukocytes ([facility]rex) NEG Surgical Pathology 06/29/2013 S RUN DATE: 06/30/ <SEE NOTE> 55 Clotest 06/29/2013 Clotest (SEE NOTE) 56 1 FASTING 2 FASTING 3 REFERENCE VALUE <=1.0 (Negative) Test Performed by: [facility] - [address] [address] 4 ADDITIONAL INFORMATION This test was developed and its performance characteristics determined by [facility] in a manner consistent with CLIA requirements. This test has not been cleared or approved by the U.S. Food and Drug Administration. Test Performed by: [facility] - [address] [address] 5 REFERENCE VALUE 0.00 - 0.15 6 Test Performed by: [facility] - [address] [address] 7 RESULTS VERIFIED BY REPEAT ANALYSIS 8 [facility] Severe Sepsis and Septic Shock Management Bundle Measure requires all lactic acids initially measuring >2.0 mmol/L be repeated. 9 Because ethnic data is not always readily available, this report includes an eGFR for both -Americans and non- Americans. The National Kidney Disease Education Program (NKDEP) does not endorse the use of the MDRD equation for patients that are not between the ages of 18 and 70, are , have extremes of body size, muscle mass, or nutritional status, or are non- or non-. According to the National Kidney Foundation, irrespective of diagnosis, the stage of the disease is based on the level of kidney function: Stage Description GFR(mL/min/1.73 m(2)) 1 Kidney damage with normal or decreased GFR 90 2 Kidney damage with mild decrease in GFR 60-89 3 Moderate decrease in GFR 30-59 4 Severe decrease in GFR 15-29 5 Kidney failure <15 (or dialysis) 10 Acute inflammation: >10.00 11 SEE RESULT BELOW Name: SILAS SULTANA : [address]: Ced Costa MD Acct: [id number] Unit: [id number] AGE: 42 Location: OR Re02/04/18 SEX: F Status: CHADD SDC SPEC: [id number] SALAZAR: 02/04/18-[address]: Sudha LOJA REQ: [id number] RECD: 02/04/18 STATUS: MAYRA BOYKIN DR: Nelda Newman MD _ SOURCE: BLOOD,VENO SPDESC: ORDERED: Blood Cult COMMENTS: Patient is On Antibiotics? NO Procedure Result Reported Site Aerobic Culture Bottle Final 02/09/18- 1031 ML No Growth Day 5 Anaerobic Culture Bottle Final 02/09/18- 1031 ML No Growth Day 5 * ML - Main Lab . END OF REPORT DEPARTMENT OF PATHOLOGY, [address] [place] [address] Raf Bryson M.D. Director [facility] # [id number] SPLT SPECIMEN 13 Because ethnic data is not always readily available, this report includes an eGFR for both -Americans and non- Americans. The National Kidney Disease Education Program (NKDEP) does not endorse the use of the MDRD equation for patients that are not between the ages of 18 and 70, are , have extremes of body size, muscle mass, or nutritional status, or are non- or non-. According to the National Kidney Foundation, irrespective of diagnosis, the stage of the disease is based on the level of kidney function: Stage Description GFR(mL/min/1.73 m(2)) 1 Kidney damage with normal or decreased GFR 90 2 Kidney damage with mild decrease in GFR 60-89 3 Moderate decrease in GFR 30-59 4 Severe decrease in GFR 15-29 5 Kidney failure <15 (or dialysis) 14 Normal Range 180 to 914 Indeterminate Range 145 to 180 Deficient Range <145 15 ADDITIONAL INFORMATION This test was developed and its performance characteristics determined by [facility] in a manner consistent with CLIA requirements. This test has not been cleared or approved by the U.S. Food and Drug Administration. Test Performed by: [facility] - [address] [address] 16 ADDITIONAL INFORMATION This test was developed and its performance characteristics determined by [facility] in a manner consistent with CLIA requirements. This test has not been cleared or approved by the U.S. Food and Drug Administration. Test Performed by: [facility] - [address] [address] 17 If is still suspected, please repeat test after 48 to 72 hours. This test detects intact HCG only and is indicated for the early detection of . 18 [facility] Severe Sepsis and Septic Shock Management Bundle Measure requires all lactic acids initially measuring >2.0 mmol/L be repeated. 19 Because ethnic data is not always readily available, this report includes an eGFR for both -Americans and non- Americans. The National Kidney Disease Education Program (NKDEP) does not endorse the use of the MDRD equation for patients that are not between the ages of 18 and 70, are , have extremes of body size, muscle mass, or nutritional status, or are non- or non-. According to the National Kidney Foundation, irrespective of diagnosis, the stage of the disease is based on the level of kidney function: Stage Description GFR(mL/min/1.73 m(2)) 1 Kidney damage with normal or decreased GFR 90 2 Kidney damage with mild decrease in GFR 60-89 3 Moderate decrease in GFR 30-59 4 Severe decrease in GFR 15-29 5 Kidney failure <15 (or dialysis) 20 Acute inflammation: >10.00 21 Desirable <150 Borderline high 150-199 High 200-499 Very High >500 22 Desirable <200 Borderline high 200-239 High >239 23 Low <40 Desirable: 40-60 High: >60 24 Desirable: <100 mg/dL Near Optimal: 100-129 mg/dL Borderline High: 130-159 mg/dL High: 160-189 mg/dL Very High: >189 mg/dL 25 PT IS FASTING 26 Because ethnic data is not always readily available, this report includes an eGFR for both -Americans and non- Americans. The National Kidney Disease Education Program (NKDEP) does not endorse the use of the MDRD equation for patients that are not between the ages of 18 and 70, are , have extremes of body size, muscle mass, or nutritional status, or are non- or non-. According to the National Kidney Foundation, irrespective of diagnosis, the stage of the disease is based on the level of kidney function: Stage Description GFR(mL/min/1.73 m(2)) 1 Kidney damage with normal or decreased GFR 90 2 Kidney damage with mild decrease in GFR 60-89 3 Moderate decrease in GFR 30-59 4 Severe decrease in GFR 15-29 5 Kidney failure <15 (or dialysis) 27 PT IS FASTING 28 PT IS FASTING 29 Normal Range 180 to 914 Indeterminate Range 145 to 180 Deficient Range <145 30 PT IS FASTING 31 Test Performed by: [place] [address] Grooming Assistant: Lu Wells, Ph.D. 32 Test Performed by: [place] [address] Grooming Assistant: Lu Wells, Ph.D. 33 Because ethnic data is not always readily available, this report includes an eGFR for both -Americans and non- Americans. The National Kidney Disease Education Program (NKDEP) does not endorse the use of the MDRD equation for patients that are not between the ages of 18 and 70, are , have extremes of body size, muscle mass, or nutritional status, or are non- or non-. According to the National Kidney Foundation, irrespective of diagnosis, the stage of the disease is based on the level of kidney function: Stage Description GFR(mL/min/1.73 m(2)) 1 Kidney damage with normal or decreased GFR 90 2 Kidney damage with mild decrease in GFR 60-89 3 Moderate decrease in GFR 30-59 4 Severe decrease in GFR 15-29 5 Kidney failure <15 (or dialysis) 34 Acute inflammation: >10.00 35 [place] Severe Sepsis and Septic Shock Management Bundle Measure requires all lactic acids initially measuring >2.0mmol/L be repeated. 36 *Ascorbic acid is present which may interfere with detection of blood. 37 SEE RESULT BELOW Name: SILAS SULTANA : [address]: eLah Loera MD Acct: [id number] Unit: [id number] AGE: 40 Location: OR Re11/13/15 SEX: F Status: REG SDC SPEC: [id number] SALAZAR: 11/13/15-[address]: Rosalba Gudino MD REQ: [id number] RECD: 11/13/15-1 STATUS: MAYRA BOYKIN DR: [facility] Nelda Cary MD _ SOURCE: URINE SPDESC: ORDERED: Urine Culture Procedure Result Reported Site Urine Culture Final 11/14/15- 1318 ML No Growth (<1,000 CFU/mL) * ML - MAIN LAB ([facility]) . END OF REPORT * ML=Testing performed at Main Lab DEPARTMENT OF PATHOLOGY, [address] [place] [address] Raf Bryson M.D. Director [facility] # [id number] 38 *Ascorbic acid is present which may interfere with detection of blood. 39 Because ethnic data is not always readily available, this report includes an eGFR for both -Americans and non- Americans. The National Kidney Disease Education Program (NKDEP) does not endorse the use of the MDRD equation for patients that are not between the ages of 18 and 70, are , have extremes of body size, muscle mass, or nutritional status, or are non- or non-. According to the National Kidney Foundation, irrespective of diagnosis, the stage of the disease is based on the level of kidney function: Stage Description GFR(mL/min/1.73 m(2)) 1 Kidney damage with normal or decreased GFR 90 2 Kidney damage with mild decrease in GFR 60-89 3 Moderate decrease in GFR 30-59 4 Severe decrease in GFR 15-29 5 Kidney failure <15 (or dialysis) 40 Acute inflammation: >10.00 41 FASTING 42 Because ethnic data is not always readily available, this report includes an eGFR for both -Americans and non- Americans. The National Kidney Disease Education Program (NKDEP) does not endorse the use of the MDRD equation for patients that are not between the ages of 18 and 70, are , have extremes of body size, muscle mass, or nutritional status, or are non- or non-. According to the National Kidney Foundation, irrespective of diagnosis, the stage of the disease is based on the level of kidney function: Stage Description GFR(mL/min/1.73 m(2)) 1 Kidney damage with normal or decreased GFR 90 2 Kidney damage with mild decrease in GFR 60-89 3 Moderate decrease in GFR 30-59 4 Severe decrease in GFR 15-29 5 Kidney failure <15 (or dialysis) 43 Test Performed by: [place] [address] Grooming Assistant: Lu Briggs, Ph.D. 44 Test Performed by: [place] [address] Grooming Assistant: Lu Briggs, Ph.D. 45 REFERENCE VALUE 25-HYDROXY D TOTAL (D2+D3) Optimum levels in the healthy population are 20-50, patients with bone disease may benefit from higher levels within this range. Test Performed by: [place] [address] Grooming Assistant: Regino Lynn M.D. 46 FASTING 47 Normal Range 180 to 914 Indeterminate Range 145 to 180 Deficient Range <145 48 FASTING 49 REFERENCE VALUE 25-HYDROXY D TOTAL (D2+D3) Optimum levels in the healthy population are 20-50, patients with bone disease may benefit from higher levels within this range. Test Performed by: [place] [address] Grooming Assistant: Regino Lynn M.D. 50 Test Performed by: [place] [address] Grooming Assistant: Lu Briggs, Ph.D. 51 Test Performed by: [place] [address] Grooming Assistant: Lu Briggs, Ph.D. 52 Because ethnic data is not always readily available, this report includes an eGFR for both -Americans and non- Americans. The National Kidney Disease Education Program (NKDEP) does not endorse the use of the MDRD equation for patients that are not between the ages of 18 and 70, are , have extremes of body size, muscle mass, or nutritional status, or are non- or non-. According to the National Kidney Foundation, irrespective of diagnosis, the stage of the disease is based on the level of kidney function: Stage Description GFR(mL/min/1.73 m(2)) 1 Kidney damage with normal or decreased GFR 90 2 Kidney damage with mild decrease in GFR 60-89 3 Moderate decrease in GFR 30-59 4 Severe decrease in GFR 15-29 5 Kidney failure <15 (or dialysis) 53 Normal Range 180 to 914 Indeterminate Range 145 to 180 Deficient Range <145 54 Because ethnic data is not always readily available, this report includes an eGFR for both -Americans and non- Americans. The National Kidney Disease Education Program (NKDEP) does not endorse the use of the MDRD equation for patients that are not between the ages of 18 and 70, are , have extremes of body size, muscle mass, or nutritional status, or are non- or non-. According to the National Kidney Foundation, irrespective of diagnosis, the stage of the disease is based on the level of kidney function: Stage Description GFR(mL/min/1.73 m(2)) 1 Kidney damage with normal or decreased GFR 90 2 Kidney damage with mild decrease in GFR 60-89 3 Moderate decrease in GFR 30-59 4 Severe decrease in GFR 15-29 5 Kidney failure <15 (or dialysis) 55 RUN DATE: 06/30/13 [facility] LAB LIVE PAGE 1 RUN TIME: [address] [place] [id number] Specimen Inquiry Name: SILAS SULTANA : [address]: Joe Engel MD Acct: [id number] Unit: [id number] AGE: 37 Location: ENDO Re06/29/13 SEX: F Status: REG REF SPEC: [id number] SALAZAR: 06/29/13- SUBM DR: Joe Engel MD REQ: [id number] RECD: 06/29/13 STATUS: ANGELO BOYKIN DR: Nelda Cary MD _ ORDERED: LEVEL IV FINAL DIAGNOSIS Stomach, biopsy: Hyperplastic polyp. CLINICAL HISTORY Obesity. Pre-bariatric surgery. POST-OPERATIVE DIAGNOSIS EGD, ulcerative colitis, crico negative, body of esophagus normal. GE junction normal. At 39 cm. stomach normal but 4 mm. gastric polyp on GC. Biopsy polyp. Clotest. No erosions/ulcer. Pylorus and duodenum negative. 1) Gastric polyp, 2) H pylori status pending. GROSS DESCRIPTION The specimen is received in formalin labeled Silas Sultana Lola Gastric Polyp and consists of a thakur-white, polypoid fragment of tissue that measures 0.5 x 0.4 x 0.4 cm. The specimen is bisected and submitted entirely in one cassette. Signed (signature on file) Huong Sanchez MD 01/11 1704 END OF REPORT * ML=Testing performed at Main Lab DEPARTMENT OF PATHOLOGY, [facility] [employer] [place], [place] [address] Raf Bryson M.D. Director [facility] Permit #[id number] RUN DATE: 06/30/13 [facility] LAB LIVE PAGE 1 RUN TIME: 801 [facility] [employer] [place], [place] [address] Specimen Inquiry Name: SILAS SULTANA : [address]: Joe Engel MD Acct: [id number] Unit: [id number] AGE: 37 Location: ENDO Re06/29/13 SEX: F Status: REG REF SPEC: [id number] SALAZAR: 06/29/13 [facility] DR: Joe Engel MD REQ: [id number] RECD: 06/29/13 STATUS: MAYRA BOYKIN DR: Nelda Cary MD _ SOURCE: GAS ANTRUM SPDMARK [facility]: ORDERED: Clotest Procedure Result Verified Site Clotest Final 06/30/13- 800 ML Clotest Negative END OF REPORT * ML=Testing performed at Main Lab DEPARTMENT OF PATHOLOGY, [address] [place] [address] Raf Bryson M.D. Director [facility] Permit #[id number] Procedures Date CPT Code Description Status 10/19/2018 Mammogram Completed 09/29/2018 73450 Brief Emotional/Behav Assessment W/ Scoring Doc Per Completed Standard Inst 12/24/2017 59179 Injection Subcutaneous Or Intramuscular Completed 02/20/2016 Mammogram Completed 01/02/2016 03048 Remove Impacted Cerumen Completed 01/15/2014 Mammogram Completed 03/09/2012 92582 Pulse Oximetry Completed Encounters Type Date Location Provider CPT E/M Dx Office Visit 10/27/2018 11:30a [facility] Office LULU Esparza [address]345 E16.2 F41.9 Office Visit 09/29/2018 1:30p [facility] Office [place] Espar[place] [address]52 R51 R42 G47.00 F43.22 Z12.39 M25.572 I10 M25.541 M25.542 Z00.00 Z23 Office Visit 08/03/2018 4:30p [facility] Huong Dorman, [facility] [address] M25.572 Office Visit 01/10/2018 10:30a Main Office Huong Dorman [facility] [address] R51 G47.00 H53.8 R42 Office Visit 12/24/2017 11:15a [facility] Office Huong Dorman [facility] [address] R51 Office Visit 08/24/2017 1:30p Main Office Huong Dorman [facility] [address]268 G47.00 F43.22 E66.3 Z23 F43.21 Office Visit 04/16/2017 4:30p Main Office Rosalba Garcia [facility] [address] J01.90 Office Visit 02/16/2017 1:30p [facility] Office Huong Dorman, [facility] [address]186 F43.22 F43.21 G47.00 Office Visit 11/26/2016 11:20a [facility] Nelda Cary M.D. 54631 F43.22 F43.21 Office Visit 09/30/2016 1:50p [facility] Nelda Cary M.D. 18482 R21 F43.22 Office Visit 01/28/2016 1:00p [facility] Nelda Cary M.D. 56776 Z00.00 E55.9 Office Visit 01/02/2016 3:15p Main Office Huong Dorman [facility] 82832 B35.4 H61.23 Office Visit 12/18/2014 10:00a [facility] Nelda Cary M.D. 69155 V70.0 995.3 Office Visit 08/08/2014 6:30p Main Office Rosalba Garcia np-C 29461 924.20 E916 Office Visit 10/06/2013 3:40p [facility] Nelda Cary M.D. 16699 278.02 995.3 Office Visit 09/15/2013 2:00p [facility] Nelda Cary M.D. 92144 V70.0 278.02 719.47 719.46 V04.81 V06.5 Office Visit 03/09/2012 5:40p [facility] Office Kenisha Mosley M.D. 92423 466.0 Office Visit 02/24/2012 1:00p [facility] Renae Gonzalezrer, [facility] 75310 461.0 Plan of Care 11/25/2018 - Huong Gomezbhart, FNPF41.9 Anxiety disorder, unspecifiedNew Medication:Escitalopram Oxalate 10 mgE16.2 Hypoglycemia, sfnsmeknazwC13.00 Insomnia, unspecifiedAllComments:~B_~U_Medication Management~b_~u_ Patient Understands medications he 's taking? Yes No Are there Barriers to Adherence? Yes No Has the patient been asked about herbal supplements and therapies, and OTC meds? Yes No As always, we strongly encourage a healthy diet and makingphysical activity a part of your every day life. If you have questions about how or where to start, please contact the office.
[2018-12-09 09:30] VITALS: BP 128/78
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
== END 2018-12-09 10:59 | disposition home or self-care (01) ==
LOC: UCEAST 09:20
DX: S16.1XXA Strain of muscle, fascia and tendon at neck level, initial encounter (principal); V43.52XA Car driver injured in collision with other type car in traffic accident, initial encounter; Y92.410 Unspecified street and highway as the place of occurrence of the external cause; I10 Essential (primary) hypertension; F41.9 Anxiety disorder, unspecified; F32.9 Major depressive disorder, single episode, unspecified; Z88.1 Allergy status to other antibiotic agents
CPT/HCPCS: 70450; 72125; 99213; G0463